=== PATIENT | female | born 1935 | race Caucasian/White ===

== ENCOUNTER 2017-05-01 19:09 | Inpatient (IN) | payer MEDICARE, BC ==
[2017-05-01] MEDS ORDERED: fentaNYL 100 MCG/2 ML SDV IVPUSH ONE (19:49)
--- NOTE | 2017-05-01 20:02 | EDM.PDOC ---
ED HPI GENERAL MEDICAL PROBLEM - General Chief Complaint: Lower Extremity Injury/Pain Stated Complaint: fFALL VIA TRI Time Seen by Provider: 05/01/17 19:35 Source of Information: Reports: Patient, EMS, Family History Limitations: Reports: No Limitations - History of Present Illness INITIAL COMMENTS - FREE TEXT/NARRATIVE: 81-year-old female tripped over a telephone cord falling onto her right side. She sustained a right hip injury, and a skin tear on her right knee and right elbow. She is unable to get up because of hip discomfort. She is holding her right hip in an internally rotated position but it is still very painful. History of COPD and congestive heart failure with pacemaker, but not complaining of chest pain or shortness of breath. She lives at home with her . Onset: Sudden (Within the last few hours) Location: Reports: Upper Extremity, Right, Lower Extremity, Right Quality: Reports: Sharp, Stabbing Severity: Moderate Worsens with: Reports: Movement Associated Symptoms: Reports: No Other Symptoms right leg Pain Score (Numeric/FACES): 4 - Related Data Allergies Allergy/AdvReac Type Severity Reaction Status Date / Time nitrofurantoin Allergy Intermediate Chills Verified 05/01/17 19:16 [From Macrobid] nitrofurantoin Allergy Intermediate Chills Verified 05/01/17 19:16 macrocrystalline [From Macrobid] Home Meds: Home Meds Multivitamin [Multi-Vitamin Daily] 1 tab PO BID 12/06/12 [History] Rosuvastatin [Crestor] 40 mg PO BEDTIME 12/06/12 [History] Acetaminophen [Acetaminophen Extra Strength] 500 mg PO ASDIRECTED PRN 05/01/17 [ History] Polyethylene Glycol 3350 [MiraLAX] 17 gm PO BID PRN 05/01/17 [History] Past Medical History HEENT History: Reports: Impaired Vision, Macular Degeneration, Other (See Below) Other HEENT History: Blind in left eye Cardiovascular History: Reports: MD, Pacemaker 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 History: Reports: Chronic Constipation 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: Musculoskeletal History: Reports: Arthritis, Back Pain, Chronic Neurological History: Reports: CVA Other Neuro History: 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 Dermatologic History: Reports: Other (See Below) Other Dermatologic History: dry skin - Infectious Disease History Infectious Disease History: Reports: Chicken Pox, Measles - Past Surgical History Cardiovascular Surgical History: Reports: Carotid Stents, Coronary Artery Bypass , Other (See Below) Other Cardiovascular Surgeries/Procedures: Patient states, "removed stents when they placed the pacer." GI Surgical History: Reports: Cholecystectomy, Colonoscopy Social & Family History - Tobacco Use Smoking Status *Q: Never Smoker Years of Tobacco use: 40 Used Tobacco, but Quit: Yes Month Tobacco Last Used: December 1989 Second Hand Smoke Exposure: No - Caffeine Use Caffeine Use: Reports: Coffee - Alcohol Use Days Per Week of Alcohol Use: 1 Number of Drinks Per Day: 2 Total Drinks Per Week: 2 - Recreational Drug Use Recreational Drug Use: No Review of Systems - Review of Systems Review Of Systems: See Below Constitutional: Denies: Fever Respiratory: Denies: Shortness of Breath, Cough Cardiovascular: Denies: Chest Pain GI/Abdominal: Denies: Abdominal Pain, Nausea, Vomiting Musculoskeletal: Reports: Other (Right hip pain) Skin: Reports: Other (Skin tears of the right elbow and right knee) Neurological: Reports: Other (No head injury or neck injury). Denies: Headache Psychiatric: Reports: No Symptoms ED EXAM, GENERAL - Physical Exam Exam: See Below Exam Limited By: No Limitations General Appearance: Alert, Mild Distress (Patient is quite uncomfortable) Head: Atraumatic Neck: Supple Respiratory/Chest: No Respiratory Distress Cardiovascular: Regular Rate, Rhythm (Very distant heart sounds but regular, no significant murmur) GI/Abdominal: Non-Tender Extremities: Other (Markedly tender to any palpation of the right proximal femur. Increased pain with any passive movement) Neurological: Alert, Oriented Skin Exam: Warm, Dry, Other (Superficial skin tears of the right knee and right elbow) Course - Vital Signs Last Recorded V/S: Last Vital Signs Temp 98.8 F 05/01/17 22:11 Pulse 100 05/01/17 22:11 Resp 18 05/01/17 22:11 BP 146/77 H 05/01/17 22:11 Pulse Ox 94 L 05/01/17 22:38 - Orders/Labs/Meds Orders: Active Orders 24 hr Category Date Time Status Urinary Catheter Assessment [RC] ASDIRECTED Care 05/01/17 20:18 Active Hip Min 2V or 3V w Pelvis Rt [CR] Stat Exams 05/01/17 19:50 Taken Medication Orders Acetaminophen (Tylenol) 650 mg PO Q4H PRN PRN Reason: Pain (Mild 1-3)/fever Albuterol (Proventil Neb Soln) 2.5 mg NEB Q4H PRN PRN Reason: Shortness Of Breath/wheezing Docusate Sodium (Colace) 100 mg PO BID PRN PRN Reason: Constipation Last Admin: 05/01/17 23:00 Dose: 100 mg Hydromorphone HCl (Dilaudid) 0.5 - 1 mg IVPUSH Q2H PRN PRN Reason: Pain Sodium Chloride (Normal Saline) 1,000 mls @ 100 mls/hr IV ASDIRECTED SUKH Last Admin: 05/01/17 22:40 Dose: 100 mls/hr Lorazepam (Ativan) 0.5 - 1 mg IV Q6H PRN PRN Reason: Agitation Melatonin (Melatonin) 6 mg PO BEDTIME SUKH Oxycodone HCl (Oxycodone) 5 mg PO Q4H PRN PRN Reason: Pain (moderate 4-6) Last Admin: 05/01/17 22:40 Dose: 5 mg Pantoprazole Sodium (Protonix Iv) 40 mg IVPUSH DAILY [facility] Last Admin: 05/01/17 23:00 Dose: 40 mg Labs: Laboratory Tests 05/01/17 05/01/17 Range/Units 20:40 20:40 WBC 9.7 (4.5-11.0) K/uL RBC 4.21 (3.30-5.50) M/uL Hgb 12.9 D (12.0-15.0) g/dL Hct 36.7 (36.0-48.0) % MCV 87 (80-98) fL MCH 31 (27-31) pg MCHC 35 (32-36) % Plt Count 154 (150-400) K/uL Neut % (Auto) 70 H (36-66) % Lymph % (Auto) 11 L (24-44) % [place] % (Auto) 12 H (2-6) % Eos % (Auto) 6 H (2-4) % Baso % (Auto) 0 (0-1) % Sodium 134 L (140-148) mmol/L Potassium 4.1 (3.6-5.2) mmol/L Chloride 102 (100-108) mmol/L Carbon Dioxide 23 (21-32) mmol/L Anion Gap 13.1 (5.0-14.0) mmol/L BUN 10 D (7-18) mg/dL Creatinine 0.7 (0.6-1.0) mg/dL Est Cr Clr Drug Dosing 45.13 mL/min Estimated GFR (MDRD) > 60 (>60) Glucose 99 (74-106) mg/dL Calcium 9.0 (8.5-10.1) mg/dL Meds: Medications Generic Name Dose Route Start Last Admin Trade Name Violeta PRN Reason Stop Dose Admin Acetaminophen 650 mg 05/01/17 22:11 Tylenol PO Q4H PRN Pain (Mild 1-3)/fever Albuterol 2.5 mg 05/01/17 22:11 Proventil Neb Soln NEB Q4H PRN Shortness Of Breath/wheezing Docusate Sodium 100 mg 05/01/17 22:11 05/01/17 23:00 Colace PO 100 mg BID PRN Administration Constipation Hydromorphone HCl 0.5 - 1 mg 05/01/17 22:11 Dilaudid IVPUSH Q2H PRN Pain Sodium Chloride 1,000 mls @ 100 mls/hr 05/01/17 22:11 05/01/17 22:40 Normal Saline IV 100 mls/hr ASDIRECTED SUKH Administration Lorazepam 0.5 - 1 mg 05/01/17 22:11 Ativan IV Q6H PRN Agitation Melatonin 6 mg 05/02/17 21:00 Melatonin PO BEDTIME SUKH Oxycodone HCl 5 mg 05/01/17 22:11 05/01/17 22:40 Oxycodone PO 5 mg Q4H PRN Administration Pain (moderate 4-6) Pantoprazole Sodium 40 mg 05/01/17 22:30 05/01/17 23:00 Protonix Iv IVPUSH 40 mg DAILY SUKH Administration Discontinued Medications Generic Name Dose Route Start Last Admin Trade Name Freq PRN Reason Stop Dose Admin Fentanyl 25 mcg 05/01/17 19:49 05/01/17 19:56 Sublimaze IVPUSH 05/01/17 19:50 25 mcg ONETIME ONE Administration Hydromorphone HCl 0.5 mg 05/01/17 20:32 05/01/17 20:43 Dilaudid IVPUSH 05/01/17 20:33 0.5 mg ONETIME ONE Administration - Re-Assessments/Exams Free Text/Narrative Re-Assessment/Exam: 05/01/17 20:02 25 g of fentanyl IV was given and a right hip x-ray with pelvis was obtained. 05/01/17 20:22 X-ray confirmed an intertrochanteric fracture of the right hip. CBC, BMP were obtained and a Serna was placed. Dr. Bryson Vizcarra of orthopedics reviewed the films, wanted the patient admitted to the hospitalist service with intention of doing surgery tomorrow. Departure - Departure Time of Disposition: 21:37 Disposition: Admitted As Inpatient 66 Condition: Fair Clinical Impression: Intertrochanteric fracture, hip - Discharge Information - My Orders Last 24 Hours: My Active Orders 05/01/17 19:50 Hip Min 2V or 3V w Pelvis Rt [CR] Stat 05/01/17 20:18 Urinary Catheter Assessment [RC] ASDIRECTED - Assessment/Plan Last 24 Hours: My Active Orders 05/01/17 19:50 Hip Min 2V or 3V w Pelvis Rt [CR] Stat 05/01/17 20:18 Urinary Catheter Assessment [RC] ASDIRECTED
[2017-05-01] MEDS ORDERED: HYDROmorphone 0.5 MG/0.5 ML Syringe IVPUSH ONE (20:32)
--- NOTE | 2017-05-01 21:43 | PCM.HP ---
H&P History of Present Illness - General Date of Service: 05/01/17 Admit Problem/Dx: Admission Diagnosis/Problem Admission Diagnosis/Problem Hip fracture requiring operative repair Source of Information: Patient, Family History Limitations: Reports: No Limitations - History of Present Illness Initial Comments - Free Text/Narative: 81-year-old female tripped over a telephone cord falling onto her right side. She sustained a right hip injury, and a skin tear on her right knee and right elbow. She is unable to get up because of hip discomfort. She is holding her right hip in an internally rotated position but it is still very painful. History of COPD and congestive heart failure with pacemaker, but not complaining of chest pain or shortness of breath. She lives at home with her . Onset of Symptoms: Reports: Sudden Symptom Onset Date: 05/01/17 Duration of Symptoms: Reports: Hour(s): Location: Reports: Lower Extremity, Right Quality: Reports: Sharp, Throbbing Severity: Severe Improves with: Reports: Immobilization Worsens with: Reports: Movement Context: Reports: Trauma (fall at home) Associated Symptoms: Reports: Other (right lower leg pain, skin tears to right elbow and right lateral thigh) right leg Pain Score (Numeric/FACES): 4 - Related Data Allergies/Adverse Reactions: Allergies Allergy/AdvReac Type Severity Reaction Status Date / Time nitrofurantoin Allergy Intermediate Chills Verified 05/01/17 19:16 [From Macrobid] nitrofurantoin Allergy Intermediate Chills Verified 05/01/17 19:16 macrocrystalline [From Macrobid] Home Medications: Home Meds Multivitamin [Multi-Vitamin Daily] 1 tab PO BID 12/06/12 [History] Rosuvastatin [Crestor] 40 mg PO BEDTIME 12/06/12 [History] Acetaminophen [Acetaminophen Extra Strength] 500 mg PO ASDIRECTED PRN 05/01/17 [ History] Polyethylene Glycol 3350 [MiraLAX] 17 gm PO BID PRN 05/01/17 [History] Past Medical History HEENT History: Reports: Impaired Vision, Macular Degeneration, Other (See Below) Other HEENT History: Blind in left eye Cardiovascular History: Reports: [place], Pacemaker 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 History: 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: Chronic 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: Musculoskeletal History: Reports: Arthritis, Back Pain, Chronic Neurological History: Reports: CVA Other Neuro History: 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 Dermatologic History: Reports: Other (See Below) Other Dermatologic History: dry skin - Infectious Disease History Infectious Disease History: Reports: Chicken Pox, Measles - Past Surgical History Cardiovascular Surgical History: Reports: Carotid Stents, Coronary Artery Bypass , Other (See Below) Other Cardiovascular Surgeries/Procedures: Patient states, "removed stents when they placed the pacer." GI Surgical History: Reports: Cholecystectomy, Colonoscopy Social & Family History - Tobacco Use Smoking Status *Q: Never Smoker Years of Tobacco use: 40 Used Tobacco, but Quit: Yes Month Tobacco Last Used: December 1989 Second Hand Smoke Exposure: No - Caffeine Use Caffeine Use: Reports: Coffee - Alcohol Use Days Per Week of Alcohol Use: 1 Number of Drinks Per Day: 2 Total Drinks Per Week: 2 - Recreational Drug Use Recreational Drug Use: No - Living Situation & Occupation Living situation: Reports: Occupation: Retired (lives with in apartment in [facility] [place] [facility] H&P Review of Systems - Review of Systems: Review Of Systems: See Below General: Reports: Other (right lower leg pain and right arm pain) HEENT: Reports: Glasses, Other (dentures) Pulmonary: Reports: No Symptoms Cardiovascular: Reports: No Symptoms 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: Reports: No Symptoms Genitourinary: Reports: No Symptoms Musculoskeletal: Reports: Leg Pain (right) Skin: Reports: Wound (skin tears to right elbow and lateral thigh) Psychiatric: Reports: Other (family member report intermittent "forgetfulness") Neurological: Reports: Other (right leg pain) Hematologic/Lymphatic: Reports: No Symptoms Immunologic: Reports: No Symptoms Exam - Exam Exam: See Below - Vital Signs Vital Signs: Last Vital Signs Temp 35.7 C 05/01/17 19:38 Pulse 94 05/01/17 21:21 Resp 22 H 05/01/17 19:38 BP 149/95 H 05/01/17 21:21 Pulse Ox 91 L 05/01/17 21:21 Weight: 45.359 kg - Exam Quality Assessment: Urinary Catheter, Other (skin tear to right elbow and right thigh) General: Alert, Oriented, Cooperative, Severe Distress HEENT: PERRLA, Conjunctiva Clear, EACs Clear, EOMI, Nares Patent, Glasses, Other (denture) Neck: Supple Lungs: Clear to Auscultation, Normal Respiratory Effort Cardiovascular: Regular Rate, Regular Rhythm, Normal S1, Normal S2 GI/Abdominal Exam: Normal Bowel Sounds, Soft, Tender (pain and tenderness noted to low pelvis ad right hip area.) (Female) Exam: Normal External Exam Rectal (Female) Exam: Normal Exam Back Exam: Decreased Range of Motion, Muscle Spasm (low back) Extremities: Pedal Edema (1+ ), Leg Pain (right upper thigh with bulge, acute pain with any movement), Limited Range of Motion Peripheral Pulses: 2+: Dorsalis Pedis (L), Dorsalis Pedis (R) Skin: Warm, Dry, Wound (skin tear to right elbow and right lateral thigh) Neurological: Normal Speech Neuro Extensive - Mental Status: Alert, Oriented x3, Normal Mood/Affect, Normal Cognition, Memory Intact Neuro Extensive - Motor, Sensory, Reflexes: Motor/Sensory Deficits Psychiatric: Alert, Normal Affect, Normal Mood - Patient Data Lab Results Last 24 hrs: Laboratory Results - last 24 hr 05/01/17 05/01/17 Range/Units 20:40 20:40 WBC 9.7 (4.5-11.0) K/uL RBC 4.21 (3.30-5.50) M/uL Hgb 12.9 D (12.0-15.0) g/dL Hct 36.7 (36.0-48.0) % MCV 87 (80-98) fL MCH 31 (27-31) pg MCHC 35 (32-36) % Plt Count 154 (150-400) K/uL Neut % (Auto) 70 H (36-66) % Lymph % (Auto) 11 L (24-44) % [place] % (Auto) 12 H (2-6) % Eos % (Auto) 6 H (2-4) % Baso % (Auto) 0 (0-1) % Sodium 134 L (140-148) mmol/L Potassium 4.1 (3.6-5.2) mmol/L Chloride 102 (100-108) mmol/L Carbon Dioxide 23 (21-32) mmol/L Anion Gap 13.1 (5.0-14.0) mmol/L BUN 10 D (7-18) mg/dL Creatinine 0.7 (0.6-1.0) mg/dL Est Cr Clr Drug Dosing 45.13 mL/min Estimated GFR (MDRD) > 60 (>60) Glucose 99 (74-106) mg/dL Calcium 9.0 (8.5-10.1) mg/dL Result Diagrams: 05/01/17 20:40 05/01/17 20:40 *Q Meaningful Use (ADM) - VTE *Q VTE Criteria *Q: - Stroke *Q Stroke Criteria *Q: - AMI *Q AMI Criteria *Q: - Problem List (1) Intertrochanteric fracture, hip SNOMED Code(s): 508624823 ICD Code: S72.143A - DISPLACED INTERTROCHANTERIC FRACTURE OF UNSP FEMUR, INIT Status: Acute Priority: High Current Visit: Yes (2) COPD (chronic obstructive pulmonary disease) SNOMED Code(s): 88999994 ICD Code: J44.9 - CHRONIC OBSTRUCTIVE PULMONARY DISEASE, UNSPECIFIED Status : Chronic Priority: Low Current Visit: No Qualifiers: Emphysema type: unspecified (3) Cardiac pacemaker in situ SNOMED Code(s): 786932045 ICD Code: Z95.0 - PRESENCE OF CARDIAC PACEMAKER Status: Chronic Priority : Medium Current Visit: No (4) Congestive heart failure (CHF) SNOMED Code(s): 66911365 ICD Code: I50.9 - HEART FAILURE, UNSPECIFIED Status: Chronic Priority: Medium Current Visit: No Qualifiers: Congestive heart failure type: unspecified Congestive heart failure chronicity: unspecified Qualified Code(s): I50.9 - Heart failure, unspecified Problem List Initiated/Reviewed/Updated: Yes Orders Last 24hrs: Active Orders 24 hr Category Date Time Status Patient Status Manage Transfer [TRANSFER] Routine ADT 05/01/17 21:06 Active Insert Serna Catheter [Insert Urinary Catheter] [OM.PC] Care 05/01/17 20:30 Ordered Q24H Urinary Catheter Assessment [RC] ASDIRECTED Care 05/01/17 20:18 Active Hip Min 2V or 3V w Pelvis Rt [CR] Stat Exams 05/01/17 19:50 Taken Resuscitation Status Routine Resus Stat 05/01/17 21:09 Ordered Assessment/Plan Comment:: Assessment/Plan Comment:: Assessment and plan - 81-year-old female tripped over a telephone cord falling onto her right side. She sustained a right hip injury, and a skin tear on her right knee and right elbow. She is unable to get up because of hip discomfort. She is holding her right hip in an internally rotated position but it is still very painful. History of COPD and congestive heart failure with pacemaker, but not complaining of chest pain or shortness of breath. She lives at home with her . Xray shows a Intertrochanteric fracture of the right hip consulted with Dr. Quang Vizcarra, will admit to Inpatient Unit with surgery in am. Family in attendance, agree with plan of care. Right Intertrochanteric fracture of right hip. -Admit for right intertrochanteric fracture of the right hip -consult Dr. Quang Vizcarra, Orthopedic Surgery -Surgical consultation for surgical intervention tomorrow -IV hydration; Normal Saline at 100ml/hr -Am labs CBC and BMP Pain control: -IV Dilaudid 0.5mg to 1 mg every 2 hours -IV Ativan 0.5 to 1 mg every 6 hours -Melatonin 6 mg at bedtime Coronary artery disease - Pacemaker, PVD, HTN, CHF, CABG 2007, -Blood pressure control and close monitoring of vital signs -telemetry hx COPD -pulse ox -albuterol nebs prn Maintenance issues - - DVT prophylaxis - mechanical, SCD - GI prophylaxis - PPI - Nutrition - regular diet this evening, nothing by mouth after midnight - Serna catheter - placed in ER CODE STATUS - FULL CODE Admission justification - This patient will be admitted for inpatient services and is medically appropriate meeting medical necessity for inpatient admission as outlined in my documentation. I reasonably expect the patient will require inpatient services that span a period time over 2 midnights. I reasonably expect this patient to be discharged or transferred within 96 hours [facility]. Disposition - anticipate discharge back to home or short term rehab after the hospital stay Primary care physician - Dr. Vargas Hospitialist: Carlitos Davis M.D. Orthopedic Surgery Service: Quang Vizcarra M.D.
[2017-05-01] MEDS ORDERED: Docusate Sodium 100 MG Cap PO PRN (22:11)
[2017-05-01] MEDS ORDERED: Albuterol 0.083% 2.5 MG/3 ML Neb Soln NEB PRN (22:11)
[2017-05-01] MEDS ORDERED: Acetaminophen 325 MG Tab PO PRN (22:11)
[2017-05-01] MEDS ORDERED: Pantoprazole 40 MG Vial IVPUSH SCH (22:30)
[2017-05-01] MEDS: oxyCODONE 5 MG Tab PO PRN (22:40)
[2017-05-01] MEDS: Sodium Chloride 0.9% 1,000 ML IV SCH (22:40)
[2017-05-02] MEDS: HYDROmorphone 0.5 MG/0.5 ML Syringe IVPUSH PRN ×6 (02:03→21:52)
[2017-05-02] MEDS: LORazepam 2 MG/ML SDV IV PRN (05:21)
[2017-05-02] MEDS ORDERED: Midazolam 1 MG/ML 2 ML SDV ONE (07:43)
[2017-05-02] MEDS ORDERED: fentaNYL 100 MCG/2 ML SDV ONE (07:43)
[2017-05-02] MEDS ORDERED: Propofol 200 MG/20 ML SDV ONE (07:43)
[2017-05-02] MEDS ORDERED: Bupivacaine 0.5%/EPINEPHrine 1:200,000 50 ML MDV ONE (07:48)
[2017-05-02] MEDS ORDERED: Povidone-Iodine 10% Soln 118.25 ML Bottle ONE (07:48)
[2017-05-02] MEDS: Sodium Chloride 0.9% 1,000 ML IV SCH ×3 (09:07→23:55)
[2017-05-02] MEDS: oxyCODONE 5 MG Tab PO PRN (09:18)
--- NOTE | 2017-05-02 09:37 | CR ---
Hip Min 2V or 3V w Pelvis Rt HISTORY: Fall. COMPARISON: 11/12/2015 FINDINGS: Moderately displaced intertrochanteric type fracture right hip. No dislocation. Pronounced bony demineralization. Pubic rami on the pelvis film not well seen due to rotation, bone demineraliza tion and overlying bowel gas. Impression: 1. Intertrochanteric fracture right hip. 2. Limited views of the pelvis as above.
[2017-05-02] MEDS ORDERED: Acetaminophen 500 MG Tab PO ONE (10:30)
[2017-05-02] MEDS ORDERED: Scopolamine 1.5 MG Transdermal Patch TOP SCH (10:45)
[2017-05-02] MEDS: Albuterol/Ipratropium 3.0-0.5 MG/3 ML Neb Soln NEB SCH ×3 (10:58→21:14)
[2017-05-02] MEDS ORDERED: Ropivacaine 49.25 ML, Ketorolac 30 MG, EPINEPHrine 0.5 MG, cloNIDine 80 MCG, Sodium Chl... INJECT ONE ×5 (11:00)
[2017-05-02] MEDS ORDERED: Ketamine 500 MG/5 ML MDV IV SCH (11:00)
--- NOTE | 2017-05-02 11:09 | PCM.CONS ---
H&P History of Present Illness - General Admit Problem/Dx: Admission Diagnosis/Problem Admission Diagnosis/Problem Hip fracture requiring operative repair Source of Information: Patient, Provider, RN History Limitations: Reports: Altered Mental Status - History of Present Illness Onset of Symptoms: Reports: Sudden Duration of Symptoms: Reports: Hour(s): Location: Reports: Lower Extremity, Right Quality: Reports: Ache, Burning, Dull, Stabbing, Throbbing Improves with: Reports: Immobilization Worsens with: Reports: None Associated Symptoms: Reports: No Other Symptoms right leg Pain Score (Numeric/FACES): 4 - Related Data Allergies/Adverse Reactions: Allergies Allergy/AdvReac Type Severity Reaction Status Date / Time nitrofurantoin Allergy Intermediate Chills Verified 05/01/17 19:16 [From Macrobid] nitrofurantoin Allergy Intermediate Chills Verified 05/01/17 19:16 macrocrystalline [From Macrobid] Home Medications: Home Meds Multivitamin [Multi-Vitamin Daily] 1 tab PO BID 12/06/12 [History] Rosuvastatin [Crestor] 40 mg PO BEDTIME 12/06/12 [History] Acetaminophen [Acetaminophen Extra Strength] 500 mg PO ASDIRECTED PRN 05/01/17 [ History] Polyethylene Glycol 3350 [MiraLAX] 17 gm PO BID PRN 05/01/17 [History] Past Medical History HEENT History: Reports: Impaired Vision, Macular Degeneration, Other (See Below) Other HEENT History: Blind in left eye Cardiovascular History: Reports: [place], Pacemaker 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 History: Reports: Chronic Constipation 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: Musculoskeletal History: Reports: Arthritis, Back Pain, Chronic Neurological History: Reports: CVA Other Neuro History: 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 Dermatologic History: Reports: Other (See Below) Other Dermatologic History: dry skin - Infectious Disease History Infectious Disease History: Reports: Chicken Pox, Measles - Past Surgical History Cardiovascular Surgical History: Reports: Carotid Stents, Coronary Artery Bypass , Other (See Below) Other Cardiovascular Surgeries/Procedures: Patient states, "removed stents when they placed the pacer." GI Surgical History: Reports: Cholecystectomy, Colonoscopy Social & Family History - Family History Family Medical History: Noncontributory - Tobacco Use Smoking Status *Q: Never Smoker Years of Tobacco use: 40 Used Tobacco, but Quit: Yes Month Tobacco Last Used: December 1989 Second Hand Smoke Exposure: No - Caffeine Use Caffeine Use: Reports: Coffee - Alcohol Use Days Per Week of Alcohol Use: 1 Number of Drinks Per Day: 2 Total Drinks Per Week: 2 Date of Last Drink: 04/30/17 Time of Last Drink: 16:00 - Recreational Drug Use Recreational Drug Use: No - Living Situation & Occupation Living situation: Reports: Occupation: Retired (lives with in apartment in [facility] H&P Review of Systems - Review of Systems: Review Of Systems: See Below General: Reports: No Symptoms HEENT: Reports: No Symptoms Pulmonary: Reports: No Symptoms Cardiovascular: Reports: No Symptoms 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: Reports: No Symptoms Genitourinary: Reports: No Symptoms Musculoskeletal: Reports: Joint Pain, Muscle Pain, Muscle Stiffness Skin: Reports: No Symptoms Psychiatric: Reports: No Symptoms Neurological: Reports: No Symptoms Hematologic/Lymphatic: Reports: No Symptoms Immunologic: Reports: No Symptoms Exam - Exam Exam: See Below - Vital Signs Vital Signs: Last Vital Signs Temp 99.7 F 05/02/17 07:53 Pulse 83 05/02/17 07:53 Resp 18 05/02/17 07:53 BP 111/50 L 05/02/17 07:53 Pulse Ox 93 L 05/02/17 07:53 Weight: 100 lb - Exam General: Alert, Oriented, 4 HEENT: PERRLA, Conjunctiva Clear, Hearing Intact, Mucosa Moist & [place] Neck: Supple, Trachea Midline, 2 Lungs: Normal Respiratory Effort Extremities: Normal Capillary Refill Peripheral Pulses: 2+: Dorsalis Pedis (L), Dorsalis Pedis (R) Skin: Warm, Dry, Intact Neurological: Cranial Nerves Intact Neuro Extensive - Mental Status: Alert, Oriented x3, Normal Mood/Affect, Slow Response to Commands Neuro Extensive - Motor, Sensory, Reflexes: CN II-XII Intact Psychiatric: Alert, Normal Affect, Normal Mood - Patient Data Lab Results Last 24 hrs: Laboratory Results - last 24 hr 05/02/17 05/02/17 Range/Units 05:45 05:45 WBC 9.3 (4.5-11.0) K/uL RBC 3.15 L (3.30-5.50) M/uL Hgb 9.5 L D (12.0-15.0) g/dL Hct 27.6 L (36.0-48.0) % MCV 88 (80-98) fL MCH 30 (27-31) pg MCHC 34 (32-36) % Plt Count 156 (150-400) K/uL Neut % (Auto) 81 H (36-66) % Lymph % (Auto) 6 L (24-44) % [place] % (Auto) 13 H (2-6) % Eos % (Auto) 0 L (2-4) % Baso % (Auto) 0 (0-1) % Sodium 135 L (140-148) mmol/L Potassium 4.0 (3.6-5.2) mmol/L Chloride 103 (100-108) mmol/L Carbon Dioxide 24 (21-32) mmol/L Anion Gap 12.0 (5.0-14.0) mmol/L BUN 13 (7-18) mg/dL Creatinine 0.9 (0.6-1.0) mg/dL Est Cr Clr Drug Dosing 35.10 mL/min Estimated GFR (MDRD) > 60 (>60) Glucose 128 H (74-106) mg/dL Calcium 8.2 L (8.5-10.1) mg/dL Result Diagrams: 05/02/17 05:45 05/02/17 05:45 Consult PN Assessment/Plan POD#: 0 Procedures: Procedures AIRWAY INHALATION TREATMENT (08/27/14) ASSAY OF CREATININE (11/12/15) ASSAY OF LACTIC ACID (07/27/14) ASSAY OF LIPASE (07/27/14) ASSAY OF MAGNESIUM (08/27/14) ASSAY OF NATRIURETIC PEPTIDE (07/28/14) ASSAY OF PHOSPHORUS (08/27/14) BLOOD TRANSFUSION SERVICE (07/28/14) BLOOD TYPING SEROLOGIC ABO (07/28/14) BLOOD TYPING SEROLOGIC RH(D) (07/28/14) C-REACTIVE PROTEIN (08/27/14) CHEST X-RAY 2VW FRONTAL&LATL (07/28/14) COMPATIBILITY TEST ANTIGLOB (07/28/14) COMPATIBILITY TEST SPIN (07/28/14) COMPLETE CBC AUTOMATED (08/27/14) COMPLETE CBC W/AUTO DIFF WBC (07/28/14) COMPREHEN METABOLIC PANEL (08/27/14) CT ABD & PELV W/CONTRAST (11/12/15) CT ABDOMEN W/DYE (03/24/13) CT CHEST SPINE W/O DYE (07/28/14) CT LUMBAR SPINE W/O DYE (07/28/14) CT THORAX W/DYE (03/24/13) ECHO EXAM OF ABDOMEN (07/28/14) ELECTROCARDIOGRAM TRACING (07/28/14) EMERGENCY DEPT VISIT (08/10/14) EMERGENCY DEPT VISIT (08/10/14) EMERGENCY DEPT VISIT (07/28/14) EMERGENCY DEPT VISIT (07/28/14) EMERGENCY DEPT VISIT (07/27/14) EMERGENCY DEPT VISIT (07/27/14) EMERGENCY DEPT VISIT (12/06/12) EMERGENCY DEPT VISIT (12/06/12) EVALUATE PT USE OF INHALER (07/28/14) HEMOGLOBIN (07/28/14) HYDRATE IV INFUSION ADD-ON (07/27/14) INSERT PULSE GEN DUAL LEADS (06/21/15) INSERT TEMP BLADDER CATH (07/27/14) MEASURE BLOOD OXYGEN LEVEL (07/28/14) METABOLIC PANEL TOTAL CA (08/27/14) PT EVALUATION (07/28/14) RBC ANTIBODY SCREEN (07/28/14) RBC SED RATE NONAUTOMATED (07/27/14) ROUTINE VENIPUNCTURE (11/12/15) THER/PROPH/DIAG INJ IV PUSH (07/28/14) TISSUE EXAM BY PATHOLOGIST (07/28/14) TX/PRO/DX INJ NEW DRUG ADDON (07/27/14) TX/PRO/DX INJ SAME DRUG MACHINE SHOP WORKER (07/28/14) URINALYSIS AUTO W/SCOPE (07/27/14) X-RAY EXAM L-2 SPINE 4/>VWS (07/27/14) X-RAY EXAM OF ABDOMEN (08/27/14) (1) Intertrochanteric fracture, hip SNOMED Code(s): 931890580 Code(s): S72.143A - DISPLACED INTERTROCHANTERIC FRACTURE OF UNSP FEMUR, INIT Current Visit: Yes Problem List Initiated/Reviewed/Updated: Yes My Orders Last 24 Hours: My Active Orders 05/02/17 10:17 Fluoro Over 1Hr wo Rad [CR] Routine 05/02/17 10:30 TYPE AND SCREEN [BBK] Routine 05/02/17 10:31 RT Incentive Spirometry [RC] ASDIRECTED 05/02/17 10:45 Scopolamine [Transderm-Scop] 1.5 mg TOP Q72H 05/02/17 11:00 Ketamine [Ketalar] 23 mg IV ASDIRECTED 05/02/17 11:30 Tranexamic Acid [Cyklokapron] 450 mg Sodium Chloride 0.9% [Normal Saline] 50 ml IV Q3H ceFAZolin [Ancef] 2 gm Premix Bag 1 bag IV ONCALL 05/03/17 16:00 Non-Formulary Medication [NF Drug] 1 each TOP DAILY Requesting Provider: leno dominguez Date Consult Requested: 05/02/17 Patient History Reviewed: Yes Admission H&P Reviewed: Yes Notified Requestor: Yes
[2017-05-02] MEDS ORDERED: Tranexamic Acid 1,000 MG in Sodium Chloride 0.9% 50 ML IV SCH (11:30)
[2017-05-02] MEDS ORDERED: SODIUM CHLORIDE 0.9% IV SCH ×2 (11:30→14:00)
[2017-05-02] MEDS ORDERED: TRANEXAMIC ACID IV SCH ×2 (11:30→14:00)
[2017-05-02] MEDS ORDERED: ceFAZolin 2 GM in Premix Bag 1 BAG IV ONE (11:30)
[2017-05-02] MEDS ORDERED: Pantoprazole 40 MG Vial IVPUSH SCH (11:30)
--- NOTE | 2017-05-02 12:03 | PCM.PN ---
- General Info Date of Service: 05/02/17 Functional Status: Denies: Pain Controlled - Review of Systems Pulmonary: Denies: Shortness of Breath Musculoskeletal: Reports: Leg Pain (right hip) Systems Review Comment:: no acute events overnight but he has not been well-controlled. Patient has been having difficulty finding a comfortable position. She is able to wiggle her toes but is unable to move her hip because of severe pain. She is on supplemental oxygen but does not feel short of breath. She does feel anxious about the upcoming procedure. - Patient Data Vitals - Most Recent: Last Vital Signs Temp 37.6 C 05/02/17 07:53 Pulse 83 05/02/17 07:53 Resp 18 05/02/17 07:53 BP 111/50 L 05/02/17 07:53 Pulse Ox 93 L 05/02/17 07:53 Weight - Most Recent: 45.359 kg I&O - Last 24 Hours: Intake & Output 05/01/17 05/02/17 05/02/17 22:59 06:59 14:59 Intake Total 50 Output Total 340 Balance -340 50 Lab Results Last 24 Hours: Laboratory Results - last 24 hr 05/02/17 05/02/17 05/02/17 Range/Units 05:45 05:45 10:30 WBC 9.3 (4.5-11.0) K/uL RBC 3.15 L (3.30-5.50) M/uL Hgb 9.5 L D (12.0-15.0) g/dL Hct 27.6 L (36.0-48.0) % MCV 88 (80-98) fL MCH 30 (27-31) pg MCHC 34 (32-36) % Plt Count 156 (150-400) K/uL Neut % (Auto) 81 H (36-66) % Lymph % (Auto) 6 L (24-44) % [place] % (Auto) 13 H (2-6) % Eos % (Auto) 0 L (2-4) % Baso % (Auto) 0 (0-1) % Sodium 135 L (140-148) mmol/L Potassium 4.0 (3.6-5.2) mmol/L Chloride 103 (100-108) mmol/L Carbon Dioxide 24 (21-32) mmol/L Anion Gap 12.0 (5.0-14.0) mmol/L BUN 13 (7-18) mg/dL Creatinine 0.9 (0.6-1.0) mg/dL Est Cr Clr Drug Dosing 35.10 mL/min Estimated GFR (MDRD) > 60 (>60) Glucose 128 H (74-106) mg/dL Calcium 8.2 L (8.5-10.1) mg/dL Blood Type A NEGATIVE Gel Antibody Screen Negative Med Orders - Current: Current Medications Acetaminophen (Tylenol) 650 mg PO Q4H PRN PRN Reason: Pain (Mild 1-3)/fever Albuterol (Proventil Neb Soln) 2.5 mg NEB Q4H PRN PRN Reason: Shortness Of Breath/wheezing Albuterol/Ipratropium (Duoneb 3.0-0.5 Mg/3 Ml) 3 ml NEB QIDRT [facility] Last Admin: 05/02/17 10:58 Dose: 3 ml Docusate Sodium (Colace) 100 mg PO BID PRN PRN Reason: Constipation Last Admin: 05/01/17 23:00 Dose: 100 mg Hydromorphone HCl (Dilaudid) 0.5 - 1 mg IVPUSH Q2H PRN PRN Reason: Pain Last Admin: 05/02/17 10:34 Dose: 1 mg Sodium Chloride (Normal Saline) 1,000 mls @ 100 mls/hr IV ASDIRECTED [facility] Last Admin: 05/02/17 09:07 Dose: 100 mls/hr Cefazolin Sodium/Dextrose 2 gm (/ Premix) 50 mls @ 100 mls/hr IV ONCALL ONE Stop: 05/02/17 11:59 Last Admin: 05/02/17 10:50 Dose: 100 mls/hr Tranexamic Acid 450 mg/ Sodium (Chloride) 54.5 mls @ 218 mls/hr IV Q3H [facility] Stop: 05/02/17 14:44 Ketamine HCl (Ketalar) 23 mg IV ASDIRECTED [facility] Stop: 05/02/17 14:00 Lorazepam (Ativan) 0.5 - 1 mg IV Q6H PRN PRN Reason: Agitation Last Admin: 05/02/17 05:21 Dose: 1 mg Melatonin (Melatonin) 6 mg PO BEDTIME [facility] Scopolamine Patch (Check) 1 each TOP DAILY [facility] Oxycodone HCl (Oxycodone) 5 mg PO Q4H PRN PRN Reason: Pain (moderate 4-6) Last Admin: 05/02/17 09:18 Dose: 5 mg Pantoprazole Sodium (Protonix) 40 mg PO ACBREAKFAST [facility] Scopolamine (Transderm-Scop) 1.5 mg TOP Q72H [facility] Stop: 05/05/17 10:00 Last Admin: 05/02/17 10:49 Dose: 1.5 mg Discontinued Medications Bupivacaine HCl/Epinephrine Bitart (Marcaine 0.5%/Epinephrine 1:200,000) Confirm Administered Dose 50 ml .ROUTE .STK-MED ONE Stop: 05/02/17 07:49 Ropivacaine 49.25 ml/Ketorolac Tromethamine 30 mg/Epinephrine HCl 0.5 mg/ Clonidine HCl 80 mcg/ Sodium Chloride 48.45 ml 0 ml INJECT ONETIME ONE Stop: 05/02/17 11:01 Fentanyl (Sublimaze) 25 mcg IVPUSH ONETIME ONE Stop: 05/01/17 19:50 Last Admin: 05/01/17 19:56 Dose: 25 mcg Fentanyl (Sublimaze) Confirm Administered Dose 100 mcg .ROUTE .STK-MED ONE Stop: 05/02/17 07:44 Hydromorphone HCl (Dilaudid) 0.5 mg IVPUSH ONETIME ONE Stop: 05/01/17 20:33 Last Admin: 05/01/17 20:43 Dose: 0.5 mg Midazolam HCl (Versed 1 Mg/Ml) Confirm Administered Dose 2 mg .ROUTE .STK-MED ONE Stop: 05/02/17 07:44 Pantoprazole Sodium (Protonix Iv) 40 mg IVPUSH DAILY [facility] Last Admin: 05/01/17 23:00 Dose: 40 mg Pantoprazole Sodium (Protonix Iv) 40 mg IVPUSH DAILY@1130 [facility] Povidone Iodine (Betadine 10% Soln) Confirm Administered Dose 1 ml .ROUTE .STK- MED ONE Stop: 05/02/17 07:49 Propofol (Diprivan 20 Ml) Confirm Administered Dose 200 mg .ROUTE .STK-MED ONE Stop: 05/02/17 07:44 - Exam Quality Assessment: Supplemental Oxygen General: Alert, Oriented, Cooperative, Mild Distress Lungs: Clear to Auscultation, Normal Respiratory Effort Cardiovascular: Regular Rate, Regular Rhythm GI/Abdominal Exam: Normal Bowel Sounds, Soft, No Distention Extremities: No Pedal Edema, Other (right leg shortened and internally rotated) Skin: Warm, Dry Psy/Mental Status: Alert, Anxious - Problem List Review Problem List Initiated/Reviewed/Updated: Yes - My Orders Last 24 Hours: My Active Orders 05/02/17 10:26 RT Aerosol Therapy [RC] ASDIRECTED 05/02/17 11:00 Albuterol/Ipratropium [DuoNeb 3.0-0.5 MG/3 ML] 3 ml NEB QIDRT 05/03/17 05:00 BASIC METABOLIC PANEL,BMP [CHEM] Timed CBC W/O DIFF,HEMOGRAM [HEME] Timed (1) 05/03/17 07:30 Pantoprazole [ProTONIX] 40 mg PO ACBREAKFAST - Plan Plan:: Assessment and Plan - Right Intertrochanteric fracture of right hip - surgical intervention planned today. Patient is probably in his good a shape as we can get her in for surgery. With her COPD this probably is the largest perioperative risk. patient does not have a great functional status at baseline and would likely benefit from subacute rehabilitation after her surgery and hospital discharge. -reevaluate patient after surgery -Scheduled nebulizers -Surgical consultation for surgical intervention -IV hydration; Normal Saline at 100ml/hr -pain control Coronary artery disease - Pacemaker, PVD, HTN, CHF, CABG 2007. these seem to be stable at this time. -continue medical management -telemetry COPD - not oxygen dependent but has been on oxygen while she's been in the hospital. This will need close monitoring postoperatively. -pulse ox -albuterol nebs prn Maintenance issues - - DVT prophylaxis - mechanical, SCD - GI prophylaxis - PPI - Nutrition - nothing by mouth until after surgery - Serna catheter - placed in ER, will remain in place for strict intake and output monitoring postoperatively Disposition - anticipate discharge to the [facility] after the hospital stay Carlitos Davis M.D.
[2017-05-02] MEDS ORDERED: Neostigmine Methylsulfate 1 MG/ML 5 ML Syringe ONE (12:40)
[2017-05-02] MEDS ORDERED: Dexamethasone 4 MG/ML SDV ONE (12:41)
[2017-05-02] MEDS ORDERED: Ondansetron 4 MG/2 ML SDV ONE (12:41)
[2017-05-02] MEDS ORDERED: Naloxone 0.4 MG/ML SDV ONE (12:57)
[2017-05-02] MEDS ORDERED: Flumazenil 0.1 MG/ML 5 ML MDV ONE (12:57)
--- NOTE | 2017-05-02 14:24 | PCM.SN ---
- Free Text/Narrative Note: I evaluated the patient in PAR at the request of nursing. there was concern that she was not waking up from anesthesia as expected. She has been nonverbal while in the recovery area. There was some concern that she was favoring the left side of her mouth for respiration rather than the entire mouth. Heart rates been in the 80s. Oxygen saturations have been in the mid 90s on 3 L of supplemental oxygen. Blood pressures have been a little bit erratic. Pupils are pinpoint. She's been in the recovery room for 45 minutes without much change. Objectively she does not have a facial droop. Her pupils are equal. She does look in the direction of the person speaking to her but is unable to follow commands at this time. I suspect that this is all medication effect with anesthesia and should clear over time. We will move her to the intensive care unit for close monitoring overnight to be on the safe side. Carlitos Davis MD
[2017-05-02] MEDS ORDERED: Zolpidem 5 MG Tab PO PRN (14:33)
[2017-05-02] MEDS ORDERED: Diazepam 5 MG Tab PO PRN (14:33)
[2017-05-02] MEDS ORDERED: diphenhydrAMINE 50 MG/ML SDV IVPUSH PRN (14:33)
[2017-05-02] MEDS ORDERED: traMADol 50 MG Tab PO PRN (14:33)
[2017-05-02] MEDS ORDERED: Aluminum Hydroxide/Magnesium Hydroxide/Simethicone Susp 30 ML Cup PO PRN (14:33)
[2017-05-02] MEDS ORDERED: Acetaminophen 1,000 MG in Premix Bag 1 BAG IV ONE (16:00)
--- NOTE | 2017-05-02 19:29 | OR ---
DATE OF PROCEDURE: 05/02/2017 PREOPERATIVE DIAGNOSIS: Right hip intertrochanteric fracture closed. POSTOPERATIVE DIAGNOSIS: Right hip intertrochanteric fracture closed. PROCEDURE: Right hip cephalomedullary nailing. OIL PRODUCER: HUDSON Sanchez. Physician clinical laboratory assistant, Coretta Stephens NP, played an essential role in assisting in this case, helping to position the patient, retract structures as needed, as well as suturing and cutting sutures as indicated. Her presence improved patient's safety and decreased operative time. ANESTHESIA: General endotracheal intubation. FLUIDS: Lactated Ringer solution. ESTIMATED BLOOD LOSS: 100 mL. COMPLICATIONS: None. SPECIMENS: None. DISCHARGE DISPOSITION: Stable to PACU. INDICATION FOR THE PROCEDURE: The patient was fell last evening. She was brought to the emergency department where she was found to have a right intertrochanteric fracture which was closed. She was admitted to the hospitalist service. We were then consulted. I spoke with the patient early this morning. Risks and benefits of the procedure were explained to the patient. Informed consent was obtained. Preoperative imaging confirmed the above- mentioned diagnosis. DESCRIPTION OF PROCEDURE: The patient was seen preoperatively in her hospital room. The operative site was marked. She was brought to the operative suite by Anesthesia staff where general anesthesia was administered. She was then placed onto a traction table with all extremities well-padded. Both feet were placed into traction stirrups. The left lower extremity was angled down. The right upper extremity was just slightly up. The right lower extremity was also internally rotated. Prior to surgery, I did apply traction and reduced the fracture as best possible using AP fluoro. We did confirm that we had good visualization on the lateral fluoro. We then removed the fluoroscopy unit and then prepped and draped in a sterile manner. Time-out was called identifying the correct patient, the correct procedure, the correct site, and then antibiotics had begun within appropriate period of time. AP fluoro was used to identify an area just proximal to the greater trochanter and then an incision was made proximal to the greater trochanter for the nail insertion. I then used the awl to go through the greater trochanter. I had to use lateral fluoro as well because of the angulation of the fracture and then the awl went down to the level of the lesser trochanter. We then inserted our guidewire and confirmed that it was down to the level of the knee and measured 360 mm. We then did an opening reamer and then sequentially reamed at 10, 11 and 12 mm with minimal chatter. I then inserted a 12 mm cephalomedullary nail by 360 mm and confirmed good position on my AP fluoro view. I then used a 10 blade to make an incision for my screw for the femoral head and then using the guide, we placed the guidewire into the femoral head. I had to adjust this once because of the way that fracture was sagging went to posteriorly. I was then able to place my guidewire with the tip apex distance on AP and lateral, less than 25 mm. Of course, this was approximation due to the fluoroscopy unit. I then used a lateral cortical entry reamer and then I measured to 105 mm, so I reamed to 100 mm. I then placed a 10 x 100 mm screw and then compressed it slightly and then statically locked my nail proximally. I then removed our outrigger and took final AP and lateral films of the proximal femur. We then concentrated on our distal screws. I used the perfect [place] technique to go through the oblong and then proximal hole, placing 5 mm x 44 mm screws. I then took my final films on AP and lateral fluoroscopy. We then copiously irrigated with saline and then closed with 2-0 Vicryl as well as #2 Stratafix Prineo. We then applied a sterile dressing. We then transferred the patient to the hospital bed and then allowed to awaken from general anesthesia and then took her to the PACU in stable condition. Quang Vizcarra DO /[id number]
[2017-05-02] MEDS: ceFAZolin 1 GM in Premix Bag 1 BAG IV SCH (20:07)
[2017-05-02] MEDS: Ketorolac 30 MG/ML SDV IVPUSH PRN (21:13)
[2017-05-02] MEDS: Melatonin 3 MG Tab PO SCH (21:14)
[2017-05-02] MEDS: Sennosides 8.6 MG Tab PO SCH (21:14)
[2017-05-02] MEDS: Magnesium Hydroxide 400 MG/5 ML Susp 30 ML Cup PO SCH (21:14)
[2017-05-03] MEDS: HYDROmorphone 0.5 MG/0.5 ML Syringe IVPUSH PRN ×5 (02:20→17:34)
[2017-05-03] MEDS: ceFAZolin 1 GM in Premix Bag 1 BAG IV SCH ×2 (03:33→11:44)
[2017-05-03] MEDS: Albuterol/Ipratropium 3.0-0.5 MG/3 ML Neb Soln NEB SCH ×4 (07:15→20:16)
[2017-05-03] MEDS: Pantoprazole 40 MG Tab.CR PO SCH (07:41)
[2017-05-03] MEDS: Magnesium Hydroxide 400 MG/5 ML Susp 30 ML Cup PO SCH ×2 (09:03→20:22)
[2017-05-03] MEDS: Sodium Chloride 0.9% 10 ML Syringe FLUSH SCH (09:03)
[2017-05-03] MEDS: Bisacodyl 5 MG Tab PO SCH (09:03)
[2017-05-03] MEDS: Aspirin 325 MG Tab.EC PO SCH (09:03)
[2017-05-03] MEDS: Sennosides 8.6 MG Tab PO SCH ×2 (09:03→20:20)
--- NOTE | 2017-05-03 09:24 | PCM.PN ---
- General Info Date of Service: 05/03/17 Functional Status: Reports: Pain Controlled, Ambulating - Review of Systems General: Reports: Weakness Neurological: Reports: Trouble Speaking, Weakness (left arm) Systems Review Comment:: No acute events overnight. Patient remains a phasic today but is able to do at least some vocalization. She is alert and interactive and follows commands and does answer her questions with head shakes or nods. 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 She has some left arm weakness but no left leg weakness. She is on supplemental oxygen. Urine output has been on the low side throughout the night. - Patient Data Vitals - Most Recent: Last Vital Signs Temp 36.8 C 05/03/17 08:00 Pulse 108 H 05/03/17 07:17 Resp 18 05/03/17 08:00 BP 156/63 H 05/03/17 08:00 Pulse Ox 91 L 05/03/17 08:00 Weight - Most Recent: 46.584 kg I&O - Last 24 Hours: Intake & Output 05/02/17 05/03/17 05/03/17 22:59 06:59 14:59 Intake Total 513 1077 Output Total 200 250 Balance 313 827 Lab Results Last 24 Hours: Laboratory Results - last 24 hr 05/02/17 05/03/17 05/03/17 Range/Units 10:30 05:15 05:15 WBC 11.7 H (4.5-11.0) K/uL RBC 2.65 L (3.30-5.50) M/uL Hgb 8.0 L (12.0-15.0) g/dL Hct 23.7 L (36.0-48.0) % MCV 89 (80-98) fL MCH 30 (27-31) pg MCHC 34 (32-36) % Plt Count 148 L (150-400) K/uL Neut % (Auto) 78 H (36-66) % Lymph % (Auto) 5 L (24-44) % [place] % (Auto) 17 H (2-6) % Eos % (Auto) 0 L (2-4) % Baso % (Auto) 0 (0-1) % Sodium 136 L (140-148) mmol/L Potassium 4.1 (3.6-5.2) mmol/L Chloride 107 (100-108) mmol/L Carbon Dioxide 22 (21-32) mmol/L Anion Gap 11.1 (5.0-14.0) mmol/L BUN 17 (7-18) mg/dL Creatinine 1.0 (0.6-1.0) mg/dL Est Cr Clr Drug Dosing 32.45 mL/min Estimated GFR (MDRD) 53 L (>60) Glucose 135 H (74-106) mg/dL Calcium 7.9 L (8.5-10.1) mg/dL Total Bilirubin 0.3 (0.2-1.0) mg/dL AST 35 (15-37) U/L ALT 23 (12-78) U/L Alkaline Phosphatase 54 (46-116) U/L Total Protein 5.0 L (6.4-8.2) g/dL Albumin 2.4 L (3.4-5.0) g/dL Globulin 2.6 (2.3-3.5) g/dL Albumin/Globulin Ratio 0.9 L (1.2-2.2) Blood Type A NEGATIVE Gel Antibody Screen Negative Med Orders - Current: Current Medications Acetaminophen (Tylenol) 650 mg PO Q4H PRN PRN Reason: Pain (Mild 1-3)/fever Al Hydroxide/Mg Hydroxide (Mag-Al Plus) 30 ml PO Q4H PRN PRN Reason: Constipation Albuterol (Proventil Neb Soln) 2.5 mg NEB Q4H PRN PRN Reason: Shortness Of Breath/wheezing Albuterol/Ipratropium (Duoneb 3.0-0.5 Mg/3 Ml) 3 ml NEB QIDRT [facility] Last Admin: 05/03/17 07:15 Dose: 3 ml Aspirin (Ecotrin) 325 mg PO DAILY [facility] Last Admin: 05/03/17 09:03 Dose: 325 mg Bisacodyl (Dulcolax) 10 mg PO DAILY [facility] Last Admin: 05/03/17 09:03 Dose: 10 mg Diazepam (Valium.) 5 mg PO Q6H PRN PRN Reason: Spasms Diphenhydramine HCl (Benadryl) 25 mg IVPUSH Q4H PRN PRN Reason: Itching Docusate Sodium (Colace) 100 mg PO BID PRN PRN Reason: Constipation Last Admin: 05/01/17 23:00 Dose: 100 mg Hydromorphone HCl (Dilaudid) 0.5 - 1 mg IVPUSH Q2H PRN PRN Reason: Pain Last Admin: 05/03/17 08:06 Dose: 0.5 mg Cefazolin Sodium/Dextrose 1 gm (/ Premix) 50 mls @ 100 mls/hr IV Q8H [facility] Stop: 05/03/17 12:29 Last Admin: 05/03/17 03:33 Dose: 100 mls/hr Ketorolac Tromethamine (Toradol) 15 mg IVPUSH Q8H PRN PRN Reason: Pain Stop: 05/07/17 14:33 Last Admin: 05/02/17 21:13 Dose: 15 mg Lorazepam (Ativan) 0.5 - 1 mg IV Q6H PRN PRN Reason: Agitation Last Admin: 05/02/17 05:21 Dose: 1 mg Magnesium Hydroxide (Milk Of Magnesia) 30 ml PO BID [facility] Last Admin: 05/03/17 09:03 Dose: 30 ml Melatonin (Melatonin) 6 mg PO BEDTIME [facility] Last Admin: 05/02/17 21:14 Dose: Not Given Morphine Sulfate (Morphine) 2 mg IVPUSH Q2H PRN PRN Reason: Pain Scopolamine Patch (Check) 1 each TOP DAILY [facility] Pantoprazole Sodium (Protonix) 40 mg PO ACBREAKFAST [facility] Last Admin: 05/03/17 07:41 Dose: 40 mg Scopolamine (Transderm-Scop) 1.5 mg TOP Q72H [facility] Stop: 05/05/17 10:00 Last Admin: 05/02/17 10:49 Dose: 1.5 mg Senna (Senna) 8.6 mg PO BID [facility] Last Admin: 05/03/17 09:03 Dose: 8.6 mg Sodium Chloride (Saline Flush) 10 ml FLUSH DAILY [facility] Last Admin: 05/03/17 09:03 Dose: 10 ml Tramadol HCl (Ultram) 100 mg PO Q6H PRN PRN Reason: Pain Zolpidem Tartrate (Ambien) 5 mg PO BEDTIME PRN PRN Reason: Sleep Discontinued Medications Bupivacaine HCl/Epinephrine Bitart (Marcaine 0.5%/Epinephrine 1:200,000) Confirm Administered Dose 50 ml .ROUTE .STK-MED ONE Stop: 05/02/17 07:49 Last Admin: 05/02/17 12:08 Dose: 20 ml Ropivacaine 49.25 ml/Ketorolac Tromethamine 30 mg/Epinephrine HCl 0.5 mg/ Clonidine HCl 80 mcg/ Sodium Chloride 48.45 ml 0 ml INJECT ONETIME ONE Stop: 05/02/17 11:01 Last Admin: 05/02/17 12:20 Dose: 100 ml Dexamethasone (Dexamethasone) Confirm Administered Dose 4 mg .ROUTE .STK-MED ONE Stop: 05/02/17 12:42 Fentanyl (Sublimaze) 25 mcg IVPUSH ONETIME ONE Stop: 05/01/17 19:50 Last Admin: 05/01/17 19:56 Dose: 25 mcg Fentanyl (Sublimaze) Confirm Administered Dose 100 mcg .ROUTE .STK-MED ONE Stop: 05/02/17 07:44 Flumazenil (Romazicon) Confirm Administered Dose 0.5 mg .ROUTE .STK-MED ONE Stop: 05/02/17 12:58 Glycopyrrolate () Confirm Administered Dose 1 mg .ROUTE .STK-MED ONE Stop: 05/02/17 12:41 Hydromorphone HCl (Dilaudid) 0.5 mg IVPUSH ONETIME ONE Stop: 05/01/17 20:33 Last Admin: 05/01/17 20:43 Dose: 0.5 mg Sodium Chloride (Normal Saline) 1,000 mls @ 100 mls/hr IV ASDIRECTED [facility] Last Admin: 05/02/17 23:55 Dose: 100 mls/hr Cefazolin Sodium/Dextrose 2 gm (/ Premix) 50 mls @ 100 mls/hr IV ONCALL ONE Stop: 05/02/17 11:59 Last Admin: 05/02/17 10:50 Dose: 100 mls/hr Tranexamic Acid 450 mg/ Sodium (Chloride) 54.5 mls @ 218 mls/hr IV Q3H [facility] Stop: 05/02/17 14:44 Last Admin: 05/02/17 12:20 Dose: 218 mls/hr Tranexamic Acid 450 mg/ Sodium (Chloride) 54.5 mls @ 218 mls/hr IV Q3H [facility] Stop: 05/02/17 14:14 Last Admin: 05/02/17 13:22 Dose: 218 mls/hr Acetaminophen 1,000 mg/ Premix 100 mls @ 400 mls/hr IV NOW ONE Stop: 05/02/17 16:14 Last Admin: 05/02/17 15:26 Dose: 400 mls/hr Ketamine HCl (Ketalar) 23 mg IV ASDIRECTED [facility] Stop: 05/02/17 14:00 Midazolam HCl (Versed 1 Mg/Ml) Confirm Administered Dose 2 mg .ROUTE .STK-MED ONE Stop: 05/02/17 07:44 Naloxone HCl (Narcan) Confirm Administered Dose 0.4 mg .ROUTE .STK-MED ONE Stop: 05/02/17 12:58 Neostigmine Methylsulfate (Neostigmine) Confirm Administered Dose 5 mg .ROUTE .STK-MED ONE Stop: 05/02/17 12:41 Ondansetron HCl (Zofran) Confirm Administered Dose 4 mg .ROUTE .STK-MED ONE Stop: 05/02/17 12:42 Oxycodone HCl (Oxycodone) 5 mg PO Q4H PRN PRN Reason: Pain (moderate 4-6) Last Admin: 05/02/17 09:18 Dose: 5 mg Oxycodone/Acetaminophen (Percocet 325-5 Mg) 2 tab PO Q4H PRN PRN Reason: Pain Pantoprazole Sodium (Protonix Iv) 40 mg IVPUSH DAILY [facility] Last Admin: 05/01/17 23:00 Dose: 40 mg Pantoprazole Sodium (Protonix Iv) 40 mg IVPUSH DAILY@1130 [facility] Povidone Iodine (Betadine 10% Soln) Confirm Administered Dose 1 ml .ROUTE .STK- MED ONE Stop: 05/02/17 07:49 Propofol (Diprivan 20 Ml) Confirm Administered Dose 200 mg .ROUTE .STK-MED ONE Stop: 05/02/17 07:44 - Exam Quality Assessment: Supplemental Oxygen General: Alert, Oriented, Cooperative, Mild Distress HEENT: Pupils Reactive Neck: Supple Lungs: Normal Respiratory Effort, Rhonchi (mild throughout) Cardiovascular: Regular Rate, Regular Rhythm, Murmurs GI/Abdominal Exam: Soft, No Distention Extremities: No Pedal Edema, Other (right elbow wrapped in coban. Right hip dressing with mostly blood soaked bandages) Skin: Warm, Dry Psy/Mental Status: Alert, Normal Affect - Problem List Review Problem List Initiated/Reviewed/Updated: Yes - My Orders Last 24 Hours: My Active Orders 05/02/17 10:26 RT Aerosol Therapy [RC] ASDIRECTED 05/02/17 11:00 Albuterol/Ipratropium [DuoNeb 3.0-0.5 MG/3 ML] 3 ml NEB QIDRT 05/02/17 14:21 Transfer Patient (Change bed) [ADT] Routine 05/02/17 17:50 Head wo Cont [CT] Routine 05/03/17 07:30 Pantoprazole [ProTONIX] 40 mg PO ACBREAKFAST 05/03/17 09:16 Consult to Speech Language Pathology [[employer] Evaluation and Treatment] [CONS] Routine 05/03/17 09:22 oxyCODONE 5 - 10 mg PO Q4H PRN 05/03/17 09:30 Dextrose 5%-1/2 Normal Saline with KCl 20 mEq @ 75 mL/Hr (1000 mL) D5 1/2 NS w / 20 mEq/L KCl 1,000 ml IV ASDIRECTED 05/03/17 Lunch Clear Liquid Diet [DIET] - Plan Plan:: Assessment and Plan - Right Intertrochanteric fracture of right hip - surgical intervention completed yesterday with IM nailing. Pain is been well-controlled. Given multiple comorbidities her recovery process will be difficult and I fear that her morbidity and mortality may be on the high side given all of her problems including COPD. Hemoglobin has dropped but does not yet require transfusion though I would suspect she may need one tomorrow morning. 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 I suspect that the surgery may have stressed this previously ischemic area leading to new difficulties with her speech. She had very similar problems with her stroke 10 years ago. -Speech pathology consultation -Avoid extremes of hypertension or hypotension -Daily aspirin Coronary artery disease - Pacemaker, PVD, HTN, CHF, CABG 2007. these seem to be stable at this time. -continue medical management -telemetry COPD - still requiring supplemental oxygen at this time. No evidence for acute exacerbation. -Scheduled and as needed nebulizers -pulse ox -albuterol nebs prn Maintenance issues - - DVT prophylaxis - mechanical, SCD - GI prophylaxis - PPI - Nutrition - clear liquids - Serna catheter - placed in ER, will remain in place for strict intake and output monitoring postoperatively Disposition - anticipate discharge to the half-way after the hospital stay Carlitos Davis M.D.
[2017-05-03] MEDS: D5 1/2 NS w/ 20 mEq/L KCl 1,000 ML IV SCH (10:13)
--- NOTE | 2017-05-03 11:11 | PCM.PN ---
- General Info Date of Service: 05/03/17 Admission Dx/Problem (Free Text): patient is status postop day 1 of a right hip nailing. She continues to work with PT OT on strengthening. Pain is under control with oral pain medication. Medical management is working with her on further issues at this time. Functional Status: Reports: Pain Controlled, Urinating - Patient Data Vitals - Most Recent: Last Vital Signs Temp 37.7 C 05/03/17 10:00 Pulse 102 H 05/03/17 10:44 Resp 9 L 05/03/17 10:00 BP 121/66 05/03/17 10:00 Pulse Ox 90 L 05/03/17 10:44 Weight - Most Recent: 102 lb 11.202 oz I&O - Last 24 Hours: Intake & Output 05/02/17 05/03/17 05/03/17 22:59 06:59 14:59 Intake Total 513 1077 Output Total 200 250 Balance 313 827 Lab Results Last 24 Hours: Laboratory Results - last 24 hr 05/02/17 05/03/17 05/03/17 Range/Units 10:30 05:15 05:15 WBC 11.7 H (4.5-11.0) K/uL RBC 2.65 L (3.30-5.50) M/uL Hgb 8.0 L (12.0-15.0) g/dL Hct 23.7 L (36.0-48.0) % MCV 89 (80-98) fL MCH 30 (27-31) pg MCHC 34 (32-36) % Plt Count 148 L (150-400) K/uL Neut % (Auto) 78 H (36-66) % Lymph % (Auto) 5 L (24-44) % [place] % (Auto) 17 H (2-6) % Eos % (Auto) 0 L (2-4) % Baso % (Auto) 0 (0-1) % Sodium 136 L (140-148) mmol/L Potassium 4.1 (3.6-5.2) mmol/L Chloride 107 (100-108) mmol/L Carbon Dioxide 22 (21-32) mmol/L Anion Gap 11.1 (5.0-14.0) mmol/L BUN 17 (7-18) mg/dL Creatinine 1.0 (0.6-1.0) mg/dL Est Cr Clr Drug Dosing 32.45 mL/min Estimated GFR (MDRD) 53 L (>60) Glucose 135 H (74-106) mg/dL Calcium 7.9 L (8.5-10.1) mg/dL Total Bilirubin 0.3 (0.2-1.0) mg/dL AST 35 (15-37) U/L ALT 23 (12-78) U/L Alkaline Phosphatase 54 (46-116) U/L Total Protein 5.0 L (6.4-8.2) g/dL Albumin 2.4 L (3.4-5.0) g/dL Globulin 2.6 (2.3-3.5) g/dL Albumin/Globulin Ratio 0.9 L (1.2-2.2) Blood Type A NEGATIVE Gel Antibody Screen Negative Med Orders - Current: Current Medications Acetaminophen (Tylenol) 650 mg PO Q4H PRN PRN Reason: Pain (Mild 1-3)/fever Al Hydroxide/Mg Hydroxide (Mag-Al Plus) 30 ml PO Q4H PRN PRN Reason: Constipation Albuterol (Proventil Neb Soln) 2.5 mg NEB Q4H PRN PRN Reason: Shortness Of Breath/wheezing Albuterol/Ipratropium (Duoneb 3.0-0.5 Mg/3 Ml) 3 ml NEB QIDRT [facility] Last Admin: 05/03/17 10:41 Dose: 3 ml Aspirin (Ecotrin) 325 mg PO DAILY [facility] Last Admin: 05/03/17 09:03 Dose: 325 mg Bisacodyl (Dulcolax) 10 mg PO DAILY [facility] Last Admin: 05/03/17 09:03 Dose: 10 mg Diazepam (Valium.) 5 mg PO Q6H PRN PRN Reason: Spasms Diphenhydramine HCl (Benadryl) 25 mg IVPUSH Q4H PRN PRN Reason: Itching Docusate Sodium (Colace) 100 mg PO BID PRN PRN Reason: Constipation Last Admin: 05/01/17 23:00 Dose: 100 mg Hydromorphone HCl (Dilaudid) 0.5 - 1 mg IVPUSH Q2H PRN PRN Reason: Pain Last Admin: 05/03/17 08:06 Dose: 0.5 mg Cefazolin Sodium/Dextrose 1 gm (/ Premix) 50 mls @ 100 mls/hr IV Q8H [facility] Stop: 05/03/17 12:29 Last Admin: 05/03/17 03:33 Dose: 100 mls/hr Potassium Chloride/Dextrose/Sod Cl (D5 1/2 Ns W/ 20 Meq/L Kcl) 1,000 mls @ 75 mls/hr IV ASDIRECTED [facility] Last Admin: 05/03/17 10:13 Dose: 75 mls/hr Ketorolac Tromethamine (Toradol) 15 mg IVPUSH Q8H PRN PRN Reason: Pain Stop: 05/07/17 14:33 Last Admin: 05/02/17 21:13 Dose: 15 mg Lorazepam (Ativan) 0.5 - 1 mg IV Q6H PRN PRN Reason: Agitation Last Admin: 05/02/17 05:21 Dose: 1 mg Magnesium Hydroxide (Milk Of Magnesia) 30 ml PO BID [facility] Last Admin: 05/03/17 09:03 Dose: 30 ml Melatonin (Melatonin) 6 mg PO BEDTIME [facility] Last Admin: 05/02/17 21:14 Dose: Not Given Morphine Sulfate (Morphine) 2 mg IVPUSH Q2H PRN PRN Reason: Pain Scopolamine Patch (Check) 1 each TOP DAILY [facility] Oxycodone HCl (Oxycodone) 5 - 10 mg PO Q4H PRN PRN Reason: Pain (moderate 4-6) Pantoprazole Sodium (Protonix) 40 mg PO ACBREAKFAST [facility] Last Admin: 05/03/17 07:41 Dose: 40 mg Scopolamine (Transderm-Scop) 1.5 mg TOP Q72H [facility] Stop: 05/05/17 10:00 Last Admin: 05/02/17 10:49 Dose: 1.5 mg Senna (Senna) 8.6 mg PO BID [facility] Last Admin: 05/03/17 09:03 Dose: 8.6 mg Sodium Chloride (Saline Flush) 10 ml FLUSH DAILY [facility] Last Admin: 05/03/17 09:03 Dose: 10 ml Tramadol HCl (Ultram) 100 mg PO Q6H PRN PRN Reason: Pain Zolpidem Tartrate (Ambien) 5 mg PO BEDTIME PRN PRN Reason: Sleep Discontinued Medications Bupivacaine HCl/Epinephrine Bitart (Marcaine 0.5%/Epinephrine 1:200,000) Confirm Administered Dose 50 ml .ROUTE .STK-MED ONE Stop: 05/02/17 07:49 Last Admin: 05/02/17 12:08 Dose: 20 ml Ropivacaine 49.25 ml/Ketorolac Tromethamine 30 mg/Epinephrine HCl 0.5 mg/ Clonidine HCl 80 mcg/ Sodium Chloride 48.45 ml 0 ml INJECT ONETIME ONE Stop: 05/02/17 11:01 Last Admin: 05/02/17 12:20 Dose: 100 ml Dexamethasone (Dexamethasone) Confirm Administered Dose 4 mg .ROUTE .STK-MED ONE Stop: 05/02/17 12:42 Fentanyl (Sublimaze) 25 mcg IVPUSH ONETIME ONE Stop: 05/01/17 19:50 Last Admin: 05/01/17 19:56 Dose: 25 mcg Fentanyl (Sublimaze) Confirm Administered Dose 100 mcg .ROUTE .STK-MED ONE Stop: 05/02/17 07:44 Flumazenil (Romazicon) Confirm Administered Dose 0.5 mg .ROUTE .STK-MED ONE Stop: 05/02/17 12:58 Glycopyrrolate () Confirm Administered Dose 1 mg .ROUTE .STK-MED ONE Stop: 05/02/17 12:41 Hydromorphone HCl (Dilaudid) 0.5 mg IVPUSH ONETIME ONE Stop: 05/01/17 20:33 Last Admin: 05/01/17 20:43 Dose: 0.5 mg Sodium Chloride (Normal Saline) 1,000 mls @ 100 mls/hr IV ASDIRECTED [facility] Last Admin: 05/02/17 23:55 Dose: 100 mls/hr Cefazolin Sodium/Dextrose 2 gm (/ Premix) 50 mls @ 100 mls/hr IV ONCALL ONE Stop: 05/02/17 11:59 Last Admin: 05/02/17 10:50 Dose: 100 mls/hr Tranexamic Acid 450 mg/ Sodium (Chloride) 54.5 mls @ 218 mls/hr IV Q3H [facility] Stop: 05/02/17 14:44 Last Admin: 05/02/17 12:20 Dose: 218 mls/hr Tranexamic Acid 450 mg/ Sodium (Chloride) 54.5 mls @ 218 mls/hr IV Q3H [facility] Stop: 05/02/17 14:14 Last Admin: 05/02/17 13:22 Dose: 218 mls/hr Acetaminophen 1,000 mg/ Premix 100 mls @ 400 mls/hr IV NOW ONE Stop: 05/02/17 16:14 Last Admin: 05/02/17 15:26 Dose: 400 mls/hr Ketamine HCl (Ketalar) 23 mg IV ASDIRECTED [facility] Stop: 05/02/17 14:00 Midazolam HCl (Versed 1 Mg/Ml) Confirm Administered Dose 2 mg .ROUTE .STK-MED ONE Stop: 05/02/17 07:44 Naloxone HCl (Narcan) Confirm Administered Dose 0.4 mg .ROUTE .STK-MED ONE Stop: 05/02/17 12:58 Neostigmine Methylsulfate (Neostigmine) Confirm Administered Dose 5 mg .ROUTE .STK-MED ONE Stop: 05/02/17 12:41 Ondansetron HCl (Zofran) Confirm Administered Dose 4 mg .ROUTE .STK-MED ONE Stop: 05/02/17 12:42 Oxycodone HCl (Oxycodone) 5 mg PO Q4H PRN PRN Reason: Pain (moderate 4-6) Last Admin: 05/02/17 09:18 Dose: 5 mg Oxycodone/Acetaminophen (Percocet 325-5 Mg) 2 tab PO Q4H PRN PRN Reason: Pain Pantoprazole Sodium (Protonix Iv) 40 mg IVPUSH DAILY [facility] Last Admin: 05/01/17 23:00 Dose: 40 mg Pantoprazole Sodium (Protonix Iv) 40 mg IVPUSH DAILY@1130 [facility] Povidone Iodine (Betadine 10% Soln) Confirm Administered Dose 1 ml .ROUTE .STK- MED ONE Stop: 05/02/17 07:49 Propofol (Diprivan 20 Ml) Confirm Administered Dose 200 mg .ROUTE .STK-MED ONE Stop: 05/02/17 07:44 - Exam General: Alert Extremities: Normal Inspection, Non-Tender, No Pedal Edema, Normal Capillary Refill Peripheral Pulses: 2+: Dorsalis Pedis (L), Dorsalis Pedis (R) Skin: Warm, Dry, Intact Wound/Incisions: Healing Well, Dressing Dry and Intact Psy/Mental Status: Alert - Problem List Review Problem List Initiated/Reviewed/Updated: Yes - My Orders Last 24 Hours: My Active Orders 05/02/17 14:33 Ambulate [RC] ASDIRECTED Head of Bed Elevation [RC] CONTINUOUS May Shower [RC] ASDIRECTED Neurovascular Check [RC] Q4HR RT Incentive Spirometry [RC] Q1HWA Turn, Cough, Deep Breathe [RC] Q1HWA Up to Chair [RC] TIDMEALS Urinary Catheter Removal [RC] Per Unit Routine Wound Care [RC] Q12H OT Evaluation and Treatment [CONS] Routine PT Evaluation and Treatment [CONS] Routine Respiratory Care Assess and Treatment [CONS] Routine Alum Hydrox/Mag Hydrox/Simeth [Mag-Al Plus] 30 ml PO Q4H PRN Diazepam [Valium] 5 mg PO Q6H PRN Ketorolac [Toradol] 15 mg IVPUSH Q8H PRN Morphine 2 mg IVPUSH Q2H PRN Zolpidem [Ambien] 5 mg PO BEDTIME PRN diphenhydrAMINE [Benadryl] 25 mg IVPUSH Q4H PRN traMADol [Ultram] 100 mg PO Q6H PRN 05/02/17 14:45 Convert IV to Saline Lock [OM.PC] PER UNIT ROUTINE Ice Therapy [OM.PC] PER UNIT ROUTINE Oral Care [OM.PC] BID 05/02/17 20:00 ceFAZolin [Ancef] 1 gm Premix Bag 1 bag IV Q8H 05/02/17 21:00 Magnesium Hydroxide [Milk of Magnesia] 30 ml PO BID Sennosides [Senna] 8.6 mg PO BID 05/03/17 09:00 Aspirin [Ecotrin] 325 mg PO DAILY Bisacodyl [Dulcolax] 10 mg PO DAILY Sodium Chloride 0.9% [Saline Flush] 10 ml FLUSH DAILY 05/03/17 14:45 Oral Care [OM.PC] BID 05/04/17 14:45 Oral Care [OM.PC] BID 05/05/17 14:45 Oral Care [OM.PC] BID 05/06/17 14:45 Oral Care [OM.PC] BID 05/07/17 14:45 Oral Care [OM.PC] BID 05/08/17 14:45 Oral Care [OM.PC] BID 05/09/17 14:45 Oral Care [OM.PC] BID 05/10/17 14:45 Oral Care [OM.PC] BID 05/11/17 14:45 Oral Care [OM.PC] BID - Plan Plan:: Assessment and Plan - Right Intertrochanteric fracture of right hip - patient will continue to work with medical management on further evaluations. She is to continue with PT OT on strengthening. She is to continue with oral pain medication as needed for pain. She is to follow-up with orthopedic clinic in 2 weeks. She is to notify us if she has any other issues in the meantime.
[2017-05-03] MEDS ORDERED: Acetaminophen/oxyCODONE 325-5 MG Tab PO PRN (14:33)
[2017-05-03] MEDS: SCOPOLAMINE PATCH CHECK TOP SCH (15:09)
[2017-05-03] MEDS ORDERED: Sodium Chloride 0.9% 500 ML IV SCH (16:45)
[2017-05-03] MEDS: Melatonin 3 MG Tab PO SCH (20:16)
[2017-05-03] MEDS: Morphine 2 MG/ML Syringe IVPUSH PRN (21:03)
[2017-05-03] MEDS: LORazepam 2 MG/ML SDV IV PRN (21:26)
[2017-05-04] MEDS: D5 1/2 NS w/ 20 mEq/L KCl 1,000 ML IV SCH (00:44)
[2017-05-04] MEDS: HYDROmorphone 0.5 MG/0.5 ML Syringe IVPUSH PRN ×5 (02:21→23:14)
[2017-05-04] MEDS ORDERED: Sodium Chloride 0.9% 1,000 ML IV SCH ×2 (04:00→14:30)
[2017-05-04] MEDS: Ketorolac 30 MG/ML SDV IVPUSH PRN (05:29)
[2017-05-04] MEDS: Albuterol/Ipratropium 3.0-0.5 MG/3 ML Neb Soln NEB SCH ×4 (07:20→20:03)
[2017-05-04] MEDS: Pantoprazole 40 MG Tab.CR PO SCH (07:41)
[2017-05-04] MEDS: SCOPOLAMINE PATCH CHECK TOP SCH (10:12)
[2017-05-04] MEDS: Bisacodyl 5 MG Tab PO SCH (10:12)
[2017-05-04] MEDS: Magnesium Hydroxide 400 MG/5 ML Susp 30 ML Cup PO SCH ×2 (10:12→20:02)
[2017-05-04] MEDS: Sennosides 8.6 MG Tab PO SCH ×2 (10:13→20:03)
[2017-05-04] MEDS: Aspirin 325 MG Tab.EC PO SCH (10:20)
[2017-05-04] MEDS: Sodium Chloride 0.9% 10 ML Syringe FLUSH SCH (10:25)
--- NOTE | 2017-05-04 10:25 | PCM.PN ---
- General Info Date of Service: 05/04/17 Subjective Update: Ms. Trivedi is an 81-year-old woman who fell and experienced right hip fracture , status post surgical repair by Dr. Bryson Vizcarra. 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 Since surgery she has had new expressive a aphasia as well as left upper extremity weakness. Has required ongoing IV fluids to maintain adequate urine output and is also developed increased hypoxia requiring more supplemental oxygen. Because of her significant expressive a aphasia is unable to provide significant information concerning symptoms or review of systems. - Patient Data Vitals - Most Recent: Last Vital Signs Temp 99 F 05/04/17 10:10 Pulse 105 H 05/04/17 08:00 Resp 14 05/04/17 10:10 BP 119/53 L 05/04/17 10:10 Pulse Ox 90 L 05/04/17 10:10 Weight - Most Recent: 103 lb 13.404 oz I&O - Last 24 Hours: Intake & Output 05/03/17 05/04/17 05/04/17 22:59 06:59 14:59 Intake Total 3236 0 Output Total 280 189 Balance -280 3047 0 Lab Results Last 24 Hours: Laboratory Results - last 24 hr 05/02/17 05/04/17 05/04/17 Range/Units 10:30 05:59 05:59 WBC 9.3 (4.5-11.0) K/uL RBC 2.44 L (3.30-5.50) M/uL Hgb 7.1 L (12.0-15.0) g/dL Hct 21.9 L (36.0-48.0) % MCV 90 (80-98) fL MCH 29 (27-31) pg MCHC 32 (32-36) % Plt Count 138 L (150-400) K/uL Neut % (Auto) 77 H (36-66) % Lymph % (Auto) 9 L (24-44) % [place] % (Auto) 14 H (2-6) % Eos % (Auto) 0 L (2-4) % Baso % (Auto) 0 (0-1) % Sodium 139 L (140-148) mmol/L Potassium 4.2 (3.6-5.2) mmol/L Chloride 110 H (100-108) mmol/L Carbon Dioxide 24 (21-32) mmol/L Anion Gap 9.2 (5.0-14.0) mmol/L BUN 17 (7-18) mg/dL Creatinine 0.8 (0.6-1.0) mg/dL Est Cr Clr Drug Dosing 41.01 mL/min Estimated GFR (MDRD) > 60 (>60) Glucose 111 H (74-106) mg/dL Calcium 7.9 L (8.5-10.1) mg/dL Total Bilirubin 0.6 D (0.2-1.0) mg/dL AST 53 H (15-37) U/L ALT 22 (12-78) U/L Alkaline Phosphatase 50 (46-116) U/L Total Protein 4.8 L (6.4-8.2) g/dL Albumin 2.3 L (3.4-5.0) g/dL Globulin 2.5 (2.3-3.5) g/dL Albumin/Globulin Ratio 0.9 L (1.2-2.2) Blood Type A NEGATIVE Gel Antibody Screen Negative Crossmatch See Detail Med Orders - Current: Current Medications Acetaminophen (Tylenol) 650 mg PO Q4H PRN PRN Reason: Pain (Mild 1-3)/fever Al Hydroxide/Mg Hydroxide (Mag-Al Plus) 30 ml PO Q4H PRN PRN Reason: Constipation Albuterol (Proventil Neb Soln) 2.5 mg NEB Q4H PRN PRN Reason: Shortness Of Breath/wheezing Last Admin: 05/03/17 13:18 Dose: 2.5 mg Albuterol/Ipratropium (Duoneb 3.0-0.5 Mg/3 Ml) 3 ml NEB QIDRT [facility] Last Admin: 05/04/17 07:20 Dose: 3 ml Aspirin (Ecotrin) 325 mg PO DAILY [facility] Last Admin: 05/03/17 09:03 Dose: 325 mg Bisacodyl (Dulcolax) 10 mg PO DAILY [facility] Last Admin: 05/04/17 10:12 Dose: Not Given Diazepam (Valium.) 5 mg PO Q6H PRN PRN Reason: Spasms Diphenhydramine HCl (Benadryl) 25 mg IVPUSH Q4H PRN PRN Reason: Itching Docusate Sodium (Colace) 100 mg PO BID PRN PRN Reason: Constipation Last Admin: 05/01/17 23:00 Dose: 100 mg Hydromorphone HCl (Dilaudid) 0.5 - 1 mg IVPUSH Q2H PRN PRN Reason: Pain Last Admin: 05/04/17 06:14 Dose: 0.5 mg Ketorolac Tromethamine (Toradol) 15 mg IVPUSH Q8H PRN PRN Reason: Pain Stop: 05/07/17 14:33 Last Admin: 05/04/17 05:29 Dose: 15 mg Lorazepam (Ativan) 0.5 - 1 mg IV Q6H PRN PRN Reason: Agitation Last Admin: 05/03/17 21:26 Dose: 1 mg Magnesium Hydroxide (Milk Of Magnesia) 30 ml PO BID [facility] Last Admin: 05/04/17 10:12 Dose: Not Given Melatonin (Melatonin) 6 mg PO BEDTIME [facility] Last Admin: 05/03/17 20:16 Dose: 6 mg Morphine Sulfate (Morphine) 2 mg IVPUSH Q2H PRN PRN Reason: Pain Last Admin: 05/03/17 21:03 Dose: 2 mg Scopolamine Patch (Check) 1 each TOP DAILY [facility] Last Admin: 05/04/17 10:12 Dose: Not Given Oxycodone HCl (Oxycodone) 5 - 10 mg PO Q4H PRN PRN Reason: Pain (moderate 4-6) Pantoprazole Sodium (Protonix) 40 mg PO ACBREAKFAST [facility] Last Admin: 05/04/17 07:41 Dose: 40 mg Scopolamine (Transderm-Scop) 1.5 mg TOP Q72H [facility] Stop: 05/05/17 10:00 Last Admin: 05/02/17 10:49 Dose: 1.5 mg Senna (Senna) 8.6 mg PO BID [facility] Last Admin: 05/04/17 10:13 Dose: Not Given Sodium Chloride (Saline Flush) 10 ml FLUSH DAILY [facility] Last Admin: 05/03/17 09:03 Dose: 10 ml Tramadol HCl (Ultram) 100 mg PO Q6H PRN PRN Reason: Pain Zolpidem Tartrate (Ambien) 5 mg PO BEDTIME PRN PRN Reason: Sleep Discontinued Medications Bupivacaine HCl/Epinephrine Bitart (Marcaine 0.5%/Epinephrine 1:200,000) Confirm Administered Dose 50 ml .ROUTE .STK-MED ONE Stop: 05/02/17 07:49 Last Admin: 05/02/17 12:08 Dose: 20 ml Ropivacaine 49.25 ml/Ketorolac Tromethamine 30 mg/Epinephrine HCl 0.5 mg/ Clonidine HCl 80 mcg/ Sodium Chloride 48.45 ml 0 ml INJECT ONETIME ONE Stop: 05/02/17 11:01 Last Admin: 05/02/17 12:20 Dose: 100 ml Dexamethasone (Dexamethasone) Confirm Administered Dose 4 mg .ROUTE .STK-MED ONE Stop: 05/02/17 12:42 Fentanyl (Sublimaze) 25 mcg IVPUSH ONETIME ONE Stop: 05/01/17 19:50 Last Admin: 05/01/17 19:56 Dose: 25 mcg Fentanyl (Sublimaze) Confirm Administered Dose 100 mcg .ROUTE .[facility]-MED ONE Stop: 05/02/17 07:44 Flumazenil (Romazicon) Confirm Administered Dose 0.5 mg .ROUTE .[facility]-MED ONE Stop: 05/02/17 12:58 Glycopyrrolate () Confirm Administered Dose 1 mg .ROUTE .STK-MED ONE Stop: 05/02/17 12:41 Hydromorphone HCl (Dilaudid) 0.5 mg IVPUSH ONETIME ONE Stop: 05/01/17 20:33 Last Admin: 05/01/17 20:43 Dose: 0.5 mg Sodium Chloride (Normal Saline) 1,000 mls @ 100 mls/hr IV ASDIRECTED [facility] Last Admin: 05/02/17 23:55 Dose: 100 mls/hr Cefazolin Sodium/Dextrose 2 gm (/ Premix) 50 mls @ 100 mls/hr IV ONCALL ONE Stop: 05/02/17 11:59 Last Admin: 05/02/17 10:50 Dose: 100 mls/hr Tranexamic Acid 450 mg/ Sodium (Chloride) 54.5 mls @ 218 mls/hr IV Q3H [facility] Stop: 05/02/17 14:44 Last Admin: 05/02/17 12:20 Dose: 218 mls/hr Tranexamic Acid 450 mg/ Sodium (Chloride) 54.5 mls @ 218 mls/hr IV Q3H [facility] Stop: 05/02/17 14:14 Last Admin: 05/02/17 13:22 Dose: 218 mls/hr Acetaminophen 1,000 mg/ Premix 100 mls @ 400 mls/hr IV NOW ONE Stop: 05/02/17 16:14 Last Admin: 05/02/17 15:26 Dose: 400 mls/hr Cefazolin Sodium/Dextrose 1 gm (/ Premix) 50 mls @ 100 mls/hr IV Q8H [facility] Stop: 05/03/17 12:29 Last Admin: 05/03/17 11:44 Dose: 100 mls/hr Potassium Chloride/Dextrose/Sod Cl (D5 1/2 Ns W/ 20 Meq/L Kcl) 1,000 mls @ 75 mls/hr IV ASDIRECTED [facility] Last Infusion: 05/04/17 03:52 Dose: 0 mls/hr Sodium Chloride (Normal Saline) 500 mls @ 500 mls/hr IV ASDIRECTED [facility] Stop: 05/03/17 17:46 Last Admin: 05/03/17 16:58 Dose: 500 mls/hr Sodium Chloride (Normal Saline) 1,000 mls @ 250 mls/hr IV ASDIRECTED [facility] Stop: 05/04/17 08:00 Last Admin: 05/04/17 03:54 Dose: 250 mls/hr Ketamine HCl (Ketalar) 23 mg IV ASDIRECTED [facility] Stop: 05/02/17 14:00 Midazolam HCl (Versed 1 Mg/Ml) Confirm Administered Dose 2 mg .ROUTE .STK-MED ONE Stop: 05/02/17 07:44 Naloxone HCl (Narcan) Confirm Administered Dose 0.4 mg .ROUTE .STK-MED ONE Stop: 05/02/17 12:58 Neostigmine Methylsulfate (Neostigmine) Confirm Administered Dose 5 mg .ROUTE .STK-MED ONE Stop: 05/02/17 12:41 Ondansetron HCl (Zofran) Confirm Administered Dose 4 mg .ROUTE .STK-MED ONE Stop: 05/02/17 12:42 Oxycodone HCl (Oxycodone) 5 mg PO Q4H PRN PRN Reason: Pain (moderate 4-6) Last Admin: 05/02/17 09:18 Dose: 5 mg Oxycodone/Acetaminophen (Percocet 325-5 Mg) 2 tab PO Q4H PRN PRN Reason: Pain Pantoprazole Sodium (Protonix Iv) 40 mg IVPUSH DAILY [facility] Last Admin: 05/01/17 23:00 Dose: 40 mg Pantoprazole Sodium (Protonix Iv) 40 mg IVPUSH DAILY@1130 [facility] Povidone Iodine (Betadine 10% Soln) Confirm Administered Dose 1 ml .ROUTE .STK- MED ONE Stop: 05/02/17 07:49 Propofol (Diprivan 20 Ml) Confirm Administered Dose 200 mg .ROUTE .STK-MED ONE Stop: 05/02/17 07:44 - Exam Quality Assessment: Supplemental Oxygen, DVT Prophylaxis General: Alert, Cooperative, Mild Distress Lungs: Clear to Auscultation, Normal Respiratory Effort Cardiovascular: Regular Rate, Regular Rhythm, No Murmurs GI/Abdominal Exam: Soft, Non-Tender, No Organomegaly, No Distention Extremities: Leg Pain Skin: Warm, Dry Neurological: No: Normal Speech, Strength Equal Bilateral - Problem List Review Problem List Initiated/Reviewed/Updated: Yes - My Orders Last 24 Hours: My Active Orders 05/04/17 08:11 Transfuse Red Blood Cells [COMM] Urgent 05/04/17 10:19 Brain w wo Cont [MR] Stat Chest 1V Frontal [CR] Urgent 05/04/17 14:00 HGB [HEMOGLOBIN] [HEME] Stat 05/05/17 05:00 BASIC METABOLIC PANEL,BMP [CHEM] Timed CBC WITH AUTO DIFF [HEME] Timed MAGNESIUM [CHEM] Timed - Plan Plan:: Assessment and Plan - Right Intertrochanteric fracture of right hip - surgical intervention completed 2 days ago with IM nailing. Pain is been well-controlled. Given multiple comorbidities her recovery process will be difficult and I fear that her morbidity and mortality may be on the high side given all of her problems including COPD. -Pain control -Surgical follow-up per orthopedic team -IV hydration; Normal Saline at 100ml/hr -Physical therapy Acute blood loss anemia-secondary to recent hip fracture and surgery, hemoglobin is now down to 7. -Transfuse one unit of red blood cells -Repeat hemoglobin level later today and in a.m. Expressive aphasia associated with left arm weakness-probably acute CVA -MRI today of the brain with and without contrast -Speech pathology consultation -Avoid extremes of hypertension or hypotension -Daily aspirin Coronary artery disease - Pacemaker, PVD, HTN, CHF, CABG 2007. these seem to be stable at this time. -continue medical management -telemetry COPD - supplemental oxygen requirements have increased over the past 24 hours -Repeat chest x-ray today -Scheduled and as needed nebulizers -pulse ox -albuterol nebs prn Maintenance issues - - DVT prophylaxis - mechanical, SCD - GI prophylaxis - PPI - Nutrition - clear liquids - Serna catheter - placed in ER, will remain in place for strict intake and output monitoring postoperatively Disposition - anticipate [facility] after the hospital stay
[2017-05-04] MEDS ORDERED: Iopamidol 612 MG/ML 100 ML Bottle IV PRN (11:15)
[2017-05-04] MEDS ORDERED: Sodium Chloride 0.9% 10 ML Syringe FLUSH ONE (11:15)
--- NOTE | 2017-05-04 13:20 | CR ---
Chest 1V Frontal HISTORY: Hypoxia. COMPARISON: 07/28/2014 FINDINGS: Left Sided pacemaker. Limited inspiration. Moderate cardiomegaly. Moderate CHF and bilatera l lung base pleural effusions. Impression: Moderate CHF.
[2017-05-04] MEDS ORDERED: Furosemide 40 MG/4 ML VIAL IVPUSH ONE (14:00)
[2017-05-04] MEDS: Melatonin 3 MG Tab PO SCH (20:02)
[2017-05-05] MEDS: LORazepam 2 MG/ML SDV IV PRN (00:48)
[2017-05-05] MEDS: HYDROmorphone 0.5 MG/0.5 ML Syringe IVPUSH PRN ×6 (05:25→19:47)
[2017-05-05] MEDS: Albuterol/Ipratropium 3.0-0.5 MG/3 ML Neb Soln NEB SCH ×4 (06:59→20:20)
[2017-05-05] MEDS: Pantoprazole 40 MG Tab.CR PO SCH (07:32)
[2017-05-05] MEDS: Potassium Chloride 20 MEQ, Lidocaine 1% 2 ML in Sodium Chloride 0.9% 100 ML IV SCH ×2 (08:30→10:31)
[2017-05-05] MEDS: Aspirin 325 MG Tab.EC PO SCH (08:58)
[2017-05-05] MEDS: Bisacodyl 5 MG Tab PO SCH (08:59)
[2017-05-05] MEDS: Sennosides 8.6 MG Tab PO SCH ×2 (09:00→20:15)
[2017-05-05] MEDS: SCOPOLAMINE PATCH CHECK TOP SCH (09:01)
[2017-05-05] MEDS: Magnesium Hydroxide 400 MG/5 ML Susp 30 ML Cup PO SCH ×2 (09:01→20:20)
[2017-05-05] MEDS: Sodium Chloride 0.9% 10 ML Syringe FLUSH SCH (09:02)
--- NOTE | 2017-05-05 09:39 | PCM.PN ---
- General Info Date of Service: 05/05/17 Subjective Update: This patient has not changed substantially over the past 24 hours. Continues to have severe aphasia, no significant movement in the left upper extremity. Nursing staff has been able to give him medications and using applesauce but she seems to cough and choke with clear liquids. White blood cell count is elevated from yesterday but she has not had significant temperature elevation. Oxygenation improved with IV furosemide additional dose will be given this morning. Because of her aphasia she is unable to provide significant information concerning symptoms or review of systems. - Patient Data Vitals - Most Recent: Last Vital Signs Temp 99.5 F 05/05/17 08:00 Pulse 98 05/05/17 08:00 Resp 14 05/05/17 08:00 BP 167/45 H 05/05/17 08:00 Pulse Ox 90 L 05/05/17 08:00 Weight - Most Recent: 95 lb 7.362 oz I&O - Last 24 Hours: Intake & Output 05/04/17 05/05/17 05/05/17 22:59 06:59 14:59 Intake Total 1596 Output Total 3415 580 Balance -3415 1016 Lab Results Last 24 Hours: Laboratory Results - last 24 hr 05/02/17 05/04/17 05/05/17 Range/Units 10:30 14:00 05:00 WBC 12.9 H (4.5-11.0) K/uL RBC 3.05 L (3.30-5.50) M/uL Hgb 8.7 L 9.3 L (12.0-15.0) g/dL Hct 27.4 L (36.0-48.0) % MCV 90 (80-98) fL MCH 31 (27-31) pg MCHC 34 (32-36) % Plt Count 145 L (150-400) K/uL Neut % (Auto) 87 H (36-66) % Lymph % (Auto) 4 L (24-44) % [place] % (Auto) 10 H (2-6) % Eos % (Auto) 0 L (2-4) % Baso % (Auto) 0 (0-1) % Sodium (140-148) mmol/L Potassium (3.6-5.2) mmol/L Chloride (100-108) mmol/L Carbon Dioxide (21-32) mmol/L Anion Gap (5.0-14.0) mmol/L BUN (7-18) mg/dL Creatinine (0.6-1.0) mg/dL Est Cr Clr Drug Dosing mL/min Estimated GFR (MDRD) (>60) Glucose (74-106) mg/dL Calcium (8.5-10.1) mg/dL Magnesium (1.8-2.4) mg/dL Blood Type A NEGATIVE Gel Antibody Screen Negative Crossmatch See Detail 05/05/17 Range/Units 05:00 WBC (4.5-11.0) K/uL RBC (3.30-5.50) M/uL Hgb (12.0-15.0) g/dL Hct (36.0-48.0) % MCV (80-98) fL MCH (27-31) pg MCHC (32-36) % Plt Count (150-400) K/uL Neut % (Auto) (36-66) % Lymph % (Auto) (24-44) % [place] % (Auto) (2-6) % Eos % (Auto) (2-4) % Baso % (Auto) (0-1) % Sodium 143 (140-148) mmol/L Potassium 3.4 L (3.6-5.2) mmol/L Chloride 107 (100-108) mmol/L Carbon Dioxide 22 (21-32) mmol/L Anion Gap 17.4 H (5.0-14.0) mmol/L BUN 16 (7-18) mg/dL Creatinine 0.8 (0.6-1.0) mg/dL Est Cr Clr Drug Dosing 37.70 mL/min Estimated GFR (MDRD) > 60 (>60) Glucose 97 (74-106) mg/dL Calcium 8.3 L (8.5-10.1) mg/dL Magnesium 1.9 D (1.8-2.4) mg/dL Blood Type Gel Antibody Screen Crossmatch Med Orders - Current: Current Medications Acetaminophen (Tylenol) 650 mg PO Q4H PRN PRN Reason: Pain (Mild 1-3)/fever Al Hydroxide/Mg Hydroxide (Mag-Al Plus) 30 ml PO Q4H PRN PRN Reason: Constipation Albuterol (Proventil Neb Soln) 2.5 mg NEB Q4H PRN PRN Reason: Shortness Of Breath/wheezing Last Admin: 05/03/17 13:18 Dose: 2.5 mg Albuterol/Ipratropium (Duoneb 3.0-0.5 Mg/3 Ml) 3 ml NEB QIDRT [facility] Last Admin: 05/05/17 06:59 Dose: 3 ml Aspirin (Ecotrin) 325 mg PO DAILY [facility] Last Admin: 05/05/17 08:58 Dose: 325 mg Bisacodyl (Dulcolax) 10 mg PO DAILY [facility] Last Admin: 05/05/17 08:59 Dose: 10 mg Diazepam (Valium.) 5 mg PO Q6H PRN PRN Reason: Spasms Diphenhydramine HCl (Benadryl) 25 mg IVPUSH Q4H PRN PRN Reason: Itching Docusate Sodium (Colace) 100 mg PO BID PRN PRN Reason: Constipation Last Admin: 05/01/17 23:00 Dose: 100 mg Furosemide (Lasix) 40 mg IVPUSH ONETIME ONE Stop: 05/05/17 09:46 Hydromorphone HCl (Dilaudid) 0.5 - 1 mg IVPUSH Q2H PRN PRN Reason: Pain Last Admin: 05/05/17 07:25 Dose: 0.5 mg Potassium Chloride 20 meq/Lidocaine HCl 2 ml/ Sodium Chloride 112 mls @ 56 mls/ hr IV Q2H [facility] Stop: 05/05/17 12:59 Last Admin: 05/05/17 08:30 Dose: 56 mls/hr Sodium Chloride (Normal Saline) 1,000 mls @ 25 mls/hr IV ASDIRECTED [facility] Iopamidol (Isovue-300 (61%)) 100 ml IV . DIRECTED PRN PRN Reason: RADIOLOGY EXAM Stop: 05/05/17 11:16 Ketorolac Tromethamine (Toradol) 15 mg IVPUSH Q8H PRN PRN Reason: Pain Stop: 05/07/17 14:33 Last Admin: 05/04/17 05:29 Dose: 15 mg Lorazepam (Ativan) 0.5 - 1 mg IV Q6H PRN PRN Reason: Agitation Last Admin: 05/05/17 00:48 Dose: 0.5 mg Magnesium Hydroxide (Milk Of Magnesia) 30 ml PO BID [facility] Last Admin: 02/03/18 09:01 Dose: 30 ml Melatonin (Melatonin) 6 mg PO BEDTIME [facility] Last Admin: 05/04/17 20:02 Dose: Not Given Morphine Sulfate (Morphine) 2 mg IVPUSH Q2H PRN PRN Reason: Pain Last Admin: 05/03/17 21:03 Dose: 2 mg Scopolamine Patch (Check) 1 each TOP DAILY [facility] Last Admin: 05/05/17 09:01 Dose: Not Given Oxycodone HCl (Oxycodone) 5 - 10 mg PO Q4H PRN PRN Reason: Pain (moderate 4-6) Pantoprazole Sodium (Protonix) 40 mg PO ACBREAKFAST [facility] Last Admin: 05/05/17 07:32 Dose: 40 mg Scopolamine (Transderm-Scop) 1.5 mg TOP Q72H [facility] Stop: 05/05/17 10:00 Last Admin: 05/02/17 10:49 Dose: 1.5 mg Senna (Senna) 8.6 mg PO BID [facility] Last Admin: 05/05/17 09:00 Dose: 8.6 mg Sodium Chloride (Saline Flush) 10 ml FLUSH DAILY [facility] Last Admin: 05/05/17 09:02 Dose: 10 ml Tramadol HCl (Ultram) 100 mg PO Q6H PRN PRN Reason: Pain Discontinued Medications Bupivacaine HCl/Epinephrine Bitart (Marcaine 0.5%/Epinephrine 1:200,000) Confirm Administered Dose 50 ml .ROUTE .STK-MED ONE Stop: 05/02/17 07:49 Last Admin: 05/02/17 12:08 Dose: 20 ml Ropivacaine 49.25 ml/Ketorolac Tromethamine 30 mg/Epinephrine HCl 0.5 mg/ Clonidine HCl 80 mcg/ Sodium Chloride 48.45 ml 0 ml INJECT ONETIME ONE Stop: 05/02/17 11:01 Last Admin: 05/02/17 12:20 Dose: 100 ml Dexamethasone (Dexamethasone) Confirm Administered Dose 4 mg .ROUTE .STK-MED ONE Stop: 05/02/17 12:42 Fentanyl (Sublimaze) 25 mcg IVPUSH ONETIME ONE Stop: 05/01/17 19:50 Last Admin: 05/01/17 19:56 Dose: 25 mcg Fentanyl (Sublimaze) Confirm Administered Dose 100 mcg .ROUTE .STK-MED ONE Stop: 05/02/17 07:44 Flumazenil (Romazicon) Confirm Administered Dose 0.5 mg .ROUTE .STK-MED ONE Stop: 05/02/17 12:58 Furosemide (Lasix) 40 mg IVPUSH NOW ONE Stop: 05/04/17 14:01 Last Admin: 05/04/17 14:05 Dose: 40 mg Glycopyrrolate () Confirm Administered Dose 1 mg .ROUTE .STK-MED ONE Stop: 05/02/17 12:41 Hydromorphone HCl (Dilaudid) 0.5 mg IVPUSH ONETIME ONE Stop: 05/01/17 20:33 Last Admin: 05/01/17 20:43 Dose: 0.5 mg Sodium Chloride (Normal Saline) 1,000 mls @ 100 mls/hr IV ASDIRECTED [facility] Last Admin: 05/02/17 23:55 Dose: 100 mls/hr Cefazolin Sodium/Dextrose 2 gm (/ Premix) 50 mls @ 100 mls/hr IV ONCALL ONE Stop: 05/02/17 11:59 Last Admin: 05/02/17 10:50 Dose: 100 mls/hr Tranexamic Acid 450 mg/ Sodium (Chloride) 54.5 mls @ 218 mls/hr IV Q3H [facility] Stop: 05/02/17 14:44 Last Admin: 05/02/17 12:20 Dose: 218 mls/hr Tranexamic Acid 450 mg/ Sodium (Chloride) 54.5 mls @ 218 mls/hr IV Q3H [facility] Stop: 05/02/17 14:14 Last Admin: 05/02/17 13:22 Dose: 218 mls/hr Acetaminophen 1,000 mg/ Premix 100 mls @ 400 mls/hr IV NOW ONE Stop: 05/02/17 16:14 Last Admin: 05/02/17 15:26 Dose: 400 mls/hr Cefazolin Sodium/Dextrose 1 gm (/ Premix) 50 mls @ 100 mls/hr IV Q8H [facility] Stop: 05/03/17 12:29 Last Admin: 05/03/17 11:44 Dose: 100 mls/hr Potassium Chloride/Dextrose/Sod Cl (D5 1/2 Ns W/ 20 Meq/L Kcl) 1,000 mls @ 75 mls/hr IV ASDIRECTED [facility] Last Infusion: 05/04/17 03:52 Dose: 0 mls/hr Sodium Chloride (Normal Saline) 500 mls @ 500 mls/hr IV ASDIRECTED [facility] Stop: 05/03/17 17:46 Last Admin: 05/03/17 16:58 Dose: 500 mls/hr Sodium Chloride (Normal Saline) 1,000 mls @ 250 mls/hr IV ASDIRECTED [facility] Stop: 05/04/17 08:00 Last Admin: 05/04/17 03:54 Dose: 250 mls/hr Sodium Chloride (Normal Saline) 1,000 mls @ 50 mls/hr IV ASDIRECTED [facility] Ketamine HCl (Ketalar) 23 mg IV ASDIRECTED [facility] Stop: 05/02/17 14:00 Midazolam HCl (Versed 1 Mg/Ml) Confirm Administered Dose 2 mg .ROUTE .STK-MED ONE Stop: 05/02/17 07:44 Naloxone HCl (Narcan) Confirm Administered Dose 0.4 mg .ROUTE .STK-MED ONE Stop: 05/02/17 12:58 Neostigmine Methylsulfate (Neostigmine) Confirm Administered Dose 5 mg .ROUTE .STK-MED ONE Stop: 05/02/17 12:41 Ondansetron HCl (Zofran) Confirm Administered Dose 4 mg .ROUTE .STK-MED ONE Stop: 05/02/17 12:42 Oxycodone HCl (Oxycodone) 5 mg PO Q4H PRN PRN Reason: Pain (moderate 4-6) Last Admin: 05/02/17 09:18 Dose: 5 mg Oxycodone/Acetaminophen (Percocet 325-5 Mg) 2 tab PO Q4H PRN PRN Reason: Pain Pantoprazole Sodium (Protonix Iv) 40 mg IVPUSH DAILY [facility] Last Admin: 05/01/17 23:00 Dose: 40 mg Pantoprazole Sodium (Protonix Iv) 40 mg IVPUSH DAILY@1130 [facility] Povidone Iodine (Betadine 10% Soln) Confirm Administered Dose 1 ml .ROUTE .STK- MED ONE Stop: 05/02/17 07:49 Propofol (Diprivan 20 Ml) Confirm Administered Dose 200 mg .ROUTE .STK-MED ONE Stop: 05/02/17 07:44 Sodium Chloride (Saline Flush) 10 ml FLUSH ONETIME ONE Stop: 05/04/17 11:16 Last Admin: 05/04/17 11:59 Dose: 10 ml Zolpidem Tartrate (Ambien) 5 mg PO BEDTIME PRN PRN Reason: Sleep - Exam Quality Assessment: Supplemental Oxygen, Urine Catheter, DVT Prophylaxis Lungs: Normal Respiratory Effort, Rales. No: Rhonchi, Rub, Stridor, Wheezing Cardiovascular: Regular Rate, Regular Rhythm, No Murmurs GI/Abdominal Exam: Soft, Non-Tender, No Organomegaly, No Distention Extremities: Non-Tender, No Pedal Edema Skin: Warm, Dry - Problem List Review Problem List Initiated/Reviewed/Updated: Yes - My Orders Last 24 Hours: My Active Orders 05/04/17 11:15 Iopamidol [Isovue-300 (61%)] 100 ml IV . DIRECTED PRN 05/05/17 09:00 Potassium Chloride 20 meq Lidocaine 1% [Xylocaine 1%] 2 ml Sodium Chloride 0.9 % [Normal Saline] 100 ml IV Q2H 05/05/17 09:28 Furosemide [Lasix] 40 mg IVPUSH NOW ONE 05/05/17 09:30 Chest 1V Frontal [CR] Urgent UA W/MICROSCOPIC [URIN] Stat 05/05/17 09:45 Sodium Chloride 0.9% [Normal Saline] 1,000 ml IV ASDIRECTED 05/05/17 Breakfast Pureed Diet [DIET] 05/06/17 05:00 BASIC METABOLIC PANEL,BMP [CHEM] Timed CBC WITH AUTO DIFF [HEME] Timed MAGNESIUM [CHEM] Timed - Plan Plan:: Assessment and Plan - Right Intertrochanteric fracture of right hip - surgical intervention completed 3 days ago with IM nailing. Pain is been well-controlled. Given multiple comorbidities her recovery process will be difficult and I fear that her morbidity and mortality may be on the high side given all of her problems including COPD. -Pain control -Surgical follow-up per orthopedic team -IV hydration; Normal Saline at 100ml/hr -Physical therapy Acute blood loss anemia-secondary to recent hip fracture and surgery, hemoglobin improved and is stable following transfusion of one unit of red blood cells -Repeat hemoglobin level in a.m. Expressive aphasia associated with left arm weakness- secondary to acute CVA. Discussed yesterday with family they did not want to proceed with further imaging as they did not feel that it would significantly change current management or care. We did review her advanced directive which clearly states that she wants to be DNR/DNI and no consideration of a feeding tube. She continues to have some difficulty with swallowing raising the possibility of possible aspiration. -Pured diet, nectar thickened liquids -Speech pathology consultation -Avoid extremes of hypertension or hypotension -Daily aspirin Congestive heart failure with fluid overload-evidence of pulmonary edema on chest x-ray yesterday with increased hypoxia and requirement of supplemental oxygen -Improved with IV diuretic therapy yesterday -Furosemide 40 mg IV today Leukocytosis-relatively mild, but does raise possibility of underlying infection. She has not had significant temperature elevation thus far Coronary artery disease - Pacemaker, PVD, HTN, CHF, CABG 2007 -continue medical management -telemetry COPD - supplemental oxygen requirements have increased over the past 24 hours -Repeat chest x-ray today -Scheduled and as needed nebulizers -pulse ox -albuterol nebs prn Palliative care-patient's advance directive reviewed and clearly states she does not want intubation, mechanical ventilation, CPR, or a feeding tube. Maintenance issues - - DVT prophylaxis - mechanical, SCD - GI prophylaxis - PPI - Nutrition - clear liquids - Serna catheter - placed in ER, will remain in place for strict intake and output monitoring postoperatively Disposition - anticipate discharge to the [facility] after the hospital stay
[2017-05-05] MEDS ORDERED: Furosemide 40 MG/4 ML VIAL IVPUSH ONE (09:45)
[2017-05-05] MEDS ORDERED: Sodium Chloride 0.9% 1,000 ML IV SCH (09:45)
[2017-05-05] MEDS: oxyCODONE 5 MG Tab PO PRN ×2 (15:39→21:03)
[2017-05-05] MEDS: Ampicillin/Sulbactam Na 1.5 GM in Sodium Chloride 0.9% 50 ML IV SCH (19:50)
[2017-05-05] MEDS: Melatonin 3 MG Tab PO SCH (20:14)
[2017-05-06] MEDS: Ampicillin/Sulbactam Na 1.5 GM in Sodium Chloride 0.9% 50 ML IV SCH ×4 (01:55→13:42)
[2017-05-06] MEDS: oxyCODONE 5 MG Tab PO PRN ×2 (02:08→12:11)
[2017-05-06] MEDS: Morphine 2 MG/ML Syringe IVPUSH PRN ×2 (03:11→23:43)
[2017-05-06] MEDS: LORazepam 2 MG/ML SDV IV PRN ×2 (03:44→17:46)
[2017-05-06] MEDS: Albuterol/Ipratropium 3.0-0.5 MG/3 ML Neb Soln NEB SCH ×4 (07:20→21:47)
[2017-05-06] MEDS: Pantoprazole 40 MG Tab.CR PO SCH (07:44)
[2017-05-06] MEDS: HYDROmorphone 0.5 MG/0.5 ML Syringe IVPUSH PRN ×2 (07:55→16:55)
[2017-05-06] MEDS: Sodium Chloride 0.9% 10 ML Syringe FLUSH SCH (08:40)
[2017-05-06] MEDS: Bisacodyl 5 MG Tab PO SCH (08:40)
[2017-05-06] MEDS: Magnesium Hydroxide 400 MG/5 ML Susp 30 ML Cup PO SCH (08:40)
[2017-05-06] MEDS: Sennosides 8.6 MG Tab PO SCH (08:40)
[2017-05-06] MEDS: Aspirin 325 MG Tab.EC PO SCH (08:40)
--- NOTE | 2017-05-06 08:56 | PCM.PN ---
- General Info Date of Service: 05/06/17 Subjective Update: This patient has been essentially unchanged over the past 24 hours, continues to have a severe expressive aphasia with weakness of the left face and left upper extremity. She is unable to communicate because of the aphasia with no ability to answer specific questions or provide information concerning review of systems. Functional Status: Reports: Pain Controlled, Urinating. Denies: Tolerating Diet - Patient Data Vitals - Most Recent: Last Vital Signs Temp 98.9 F 05/06/17 08:00 Pulse 89 05/06/17 08:00 Resp 19 05/06/17 08:00 BP 176/83 H 05/06/17 08:00 Pulse Ox 92 L 05/06/17 08:00 Weight - Most Recent: 95 lb 7.362 oz I&O - Last 24 Hours: Intake & Output 05/05/17 05/06/17 05/06/17 22:59 06:59 14:59 Intake Total 519 325 Output Total 350 Balance 169 325 Lab Results Last 24 Hours: Laboratory Results - last 24 hr 05/05/17 05/06/17 05/06/17 Range/Units 10:05 05:44 05:44 WBC 11.3 H (4.5-11.0) K/uL RBC 3.14 L (3.30-5.50) M/uL Hgb 9.5 L (12.0-15.0) g/dL Hct 28.6 L (36.0-48.0) % MCV 91 (80-98) fL MCH 30 (27-31) pg MCHC 33 (32-36) % Plt Count 175 (150-400) K/uL Neut % (Auto) 85 H (36-66) % Lymph % (Auto) 4 L (24-44) % [place] % (Auto) 11 H (2-6) % Eos % (Auto) 0 L (2-4) % Baso % (Auto) 0 (0-1) % Sodium 145 (140-148) mmol/L Potassium 4.9 (3.6-5.2) mmol/L Chloride 108 (100-108) mmol/L Carbon Dioxide 31 (21-32) mmol/L Anion Gap 10.9 (5.0-14.0) mmol/L BUN 20 H (7-18) mg/dL Creatinine 0.9 (0.6-1.0) mg/dL Est Cr Clr Drug Dosing 33.51 mL/min Estimated GFR (MDRD) > 60 (>60) Glucose 109 H (74-106) mg/dL Calcium 8.2 L (8.5-10.1) mg/dL Magnesium 2.3 (1.8-2.4) mg/dL Urine Color Yellow Urine Appearance Slightly cloudy Urine pH 6.0 (4.5-8.0) Ur Specific [place] 1.010 (1.008-1.030) Urine Protein Negative (NEGATIVE) mg/dL Urine Glucose (UA) Normal (NEGATIVE) mg/dL Urine Ketones 50 H (NEGATIVE) mg/dL Urine Occult Blood Large (NEGATIVE) Urine Nitrite Negative (NEGATIVE) Urine Bilirubin Negative (NEGATIVE) Urine Urobilinogen Normal (NORMAL) mg/dL Ur Leukocyte Esterase Negative (NEGATIVE) Urine RBC 0-5 (0-5) Urine WBC 0-5 (0-5) Ur Epithelial Cells Not seen Amorphous Sediment Rare Urine Bacteria Not seen Urine Mucus Not seen Med Orders - Current: Current Medications Acetaminophen (Tylenol) 650 mg PO Q4H PRN PRN Reason: Pain (Mild 1-3)/fever Al Hydroxide/Mg Hydroxide (Mag-Al Plus) 30 ml PO Q4H PRN PRN Reason: Constipation Albuterol (Proventil Neb Soln) 2.5 mg NEB Q4H PRN PRN Reason: Shortness Of Breath/wheezing Last Admin: 05/03/17 13:18 Dose: 2.5 mg Albuterol/Ipratropium (Duoneb 3.0-0.5 Mg/3 Ml) 3 ml NEB QIDRT [facility] Last Admin: 05/06/17 07:20 Dose: 3 ml Aspirin (Ecotrin) 325 mg PO DAILY [facility] Last Admin: 05/06/17 08:40 Dose: 325 mg Bisacodyl (Dulcolax) 10 mg PO DAILY [facility] Last Admin: 05/06/17 08:40 Dose: 10 mg Diazepam (Valium.) 5 mg PO Q6H PRN PRN Reason: Spasms Diphenhydramine HCl (Benadryl) 25 mg IVPUSH Q4H PRN PRN Reason: Itching Docusate Sodium (Colace) 100 mg PO BID PRN PRN Reason: Constipation Last Admin: 05/01/17 23:00 Dose: 100 mg Hydromorphone HCl (Dilaudid) 0.5 - 1 mg IVPUSH Q2H PRN PRN Reason: Pain Last Admin: 05/06/17 07:55 Dose: 0.5 mg Ampicillin Sodium/Sulbactam (Sodium 1.5 gm/ Sodium Chloride) 50 mls @ 100 mls/ hr IV Q6H [facility] Last Admin: 05/06/17 07:44 Dose: 100 mls/hr Ketorolac Tromethamine (Toradol) 15 mg IVPUSH Q8H PRN PRN Reason: Pain Stop: 05/07/17 14:33 Last Admin: 05/04/17 05:29 Dose: 15 mg Lorazepam (Ativan) 0.5 - 1 mg IV Q6H PRN PRN Reason: Agitation Last Admin: 05/06/17 03:44 Dose: 0.5 mg Magnesium Hydroxide (Milk Of Magnesia) 30 ml PO BID [facility] Last Admin: 05/06/17 08:40 Dose: 30 ml Melatonin (Melatonin) 6 mg PO BEDTIME [facility] Last Admin: 05/05/17 20:14 Dose: 6 mg Morphine Sulfate (Morphine) 2 mg IVPUSH Q2H PRN PRN Reason: Pain Last Admin: 05/06/17 03:11 Dose: 2 mg Scopolamine Patch (Check) 1 each TOP DAILY [facility] Last Admin: 05/05/17 09:01 Dose: Not Given Oxycodone HCl (Oxycodone) 5 - 10 mg PO Q4H PRN PRN Reason: Pain (moderate 4-6) Last Admin: 05/06/17 02:08 Dose: 5 mg Pantoprazole Sodium (Protonix) 40 mg PO ACBREAKFAST [facility] Last Admin: 05/06/17 07:44 Dose: 40 mg Senna (Senna) 8.6 mg PO BID [facility] Last Admin: 05/06/17 08:40 Dose: 8.6 mg Sodium Chloride (Saline Flush) 10 ml FLUSH DAILY [facility] Last Admin: 05/06/17 08:40 Dose: 10 ml Tramadol HCl (Ultram) 100 mg PO Q6H PRN PRN Reason: Pain Discontinued Medications Bupivacaine HCl/Epinephrine Bitart (Marcaine 0.5%/Epinephrine 1:200,000) Confirm Administered Dose 50 ml .ROUTE .[facility]-MED ONE Stop: 05/02/17 07:49 Last Admin: 05/02/17 12:08 Dose: 20 ml Ropivacaine 49.25 ml/Ketorolac Tromethamine 30 mg/Epinephrine HCl 0.5 mg/ Clonidine HCl 80 mcg/ Sodium Chloride 48.45 ml 0 ml INJECT ONETIME ONE Stop: 05/02/17 11:01 Last Admin: 05/02/17 12:20 Dose: 100 ml Dexamethasone (Dexamethasone) Confirm Administered Dose 4 mg .ROUTE .STK-MED ONE Stop: 05/02/17 12:42 Fentanyl (Sublimaze) 25 mcg IVPUSH ONETIME ONE Stop: 05/01/17 19:50 Last Admin: 05/01/17 19:56 Dose: 25 mcg Fentanyl (Sublimaze) Confirm Administered Dose 100 mcg .ROUTE .[facility]-MED ONE Stop: 05/02/17 07:44 Flumazenil (Romazicon) Confirm Administered Dose 0.5 mg .ROUTE .STK-MED ONE Stop: 05/02/17 12:58 Furosemide (Lasix) 40 mg IVPUSH NOW ONE Stop: 05/04/17 14:01 Last Admin: 05/04/17 14:05 Dose: 40 mg Furosemide (Lasix) 40 mg IVPUSH ONETIME ONE Stop: 05/05/17 09:46 Last Admin: 05/05/17 09:49 Dose: 40 mg Glycopyrrolate () Confirm Administered Dose 1 mg .ROUTE .STK-MED ONE Stop: 05/02/17 12:41 Hydromorphone HCl (Dilaudid) 0.5 mg IVPUSH ONETIME ONE Stop: 05/01/17 20:33 Last Admin: 05/01/17 20:43 Dose: 0.5 mg Sodium Chloride (Normal Saline) 1,000 mls @ 100 mls/hr IV ASDIRECTED [facility] Last Admin: 05/02/17 23:55 Dose: 100 mls/hr Cefazolin Sodium/Dextrose 2 gm (/ Premix) 50 mls @ 100 mls/hr IV ONCALL ONE Stop: 05/02/17 11:59 Last Admin: 05/02/17 10:50 Dose: 100 mls/hr Tranexamic Acid 450 mg/ Sodium (Chloride) 54.5 mls @ 218 mls/hr IV Q3H [facility] Stop: 05/02/17 14:44 Last Admin: 05/02/17 12:20 Dose: 218 mls/hr Tranexamic Acid 450 mg/ Sodium (Chloride) 54.5 mls @ 218 mls/hr IV Q3H [facility] Stop: 05/02/17 14:14 Last Admin: 05/02/17 13:22 Dose: 218 mls/hr Acetaminophen 1,000 mg/ Premix 100 mls @ 400 mls/hr IV NOW ONE Stop: 05/02/17 16:14 Last Admin: 05/02/17 15:26 Dose: 400 mls/hr Cefazolin Sodium/Dextrose 1 gm (/ Premix) 50 mls @ 100 mls/hr IV Q8H [facility] Stop: 05/03/17 12:29 Last Admin: 05/03/17 11:44 Dose: 100 mls/hr Potassium Chloride/Dextrose/Sod Cl (D5 1/2 Ns W/ 20 Meq/L Kcl) 1,000 mls @ 75 mls/hr IV ASDIRECTED [facility] Last Infusion: 05/04/17 03:52 Dose: 0 mls/hr Sodium Chloride (Normal Saline) 500 mls @ 500 mls/hr IV ASDIRECTED [facility] Stop: 05/03/17 17:46 Last Admin: 05/03/17 16:58 Dose: 500 mls/hr Sodium Chloride (Normal Saline) 1,000 mls @ 250 mls/hr IV ASDIRECTED [facility] Stop: 05/04/17 08:00 Last Admin: 05/04/17 03:54 Dose: 250 mls/hr Sodium Chloride (Normal Saline) 1,000 mls @ 50 mls/hr IV ASDIRECTED [facility] Potassium Chloride 20 meq/Lidocaine HCl 2 ml/ Sodium Chloride 112 mls @ 56 mls/ hr IV Q2H [facility] Stop: 05/05/17 12:59 Last Admin: 05/05/17 10:31 Dose: 56 mls/hr Sodium Chloride (Normal Saline) 1,000 mls @ 25 mls/hr IV ASDIRECTED [facility] Last Admin: 05/05/17 15:12 Dose: 25 mls/hr Ampicillin Sodium/Sulbactam (Sodium 1.5 gm/ Sodium Chloride) 50 mls @ 100 mls/ hr IV Q6H [facility] Last Admin: 05/06/17 07:39 Dose: Not Given Iopamidol (Isovue-300 (61%)) 100 ml IV . DIRECTED PRN PRN Reason: RADIOLOGY EXAM Stop: 05/05/17 11:16 Ketamine HCl (Ketalar) 23 mg IV ASDIRECTED [facility] Stop: 05/02/17 14:00 Midazolam HCl (Versed 1 Mg/Ml) Confirm Administered Dose 2 mg .ROUTE .STK-MED ONE Stop: 05/02/17 07:44 Naloxone HCl (Narcan) Confirm Administered Dose 0.4 mg .ROUTE .STK-MED ONE Stop: 05/02/17 12:58 Neostigmine Methylsulfate (Neostigmine) Confirm Administered Dose 5 mg .ROUTE .STK-MED ONE Stop: 05/02/17 12:41 Ondansetron HCl (Zofran) Confirm Administered Dose 4 mg .ROUTE .STK-MED ONE Stop: 05/02/17 12:42 Oxycodone HCl (Oxycodone) 5 mg PO Q4H PRN PRN Reason: Pain (moderate 4-6) Last Admin: 05/02/17 09:18 Dose: 5 mg Oxycodone/Acetaminophen (Percocet 325-5 Mg) 2 tab PO Q4H PRN PRN Reason: Pain Pantoprazole Sodium (Protonix Iv) 40 mg IVPUSH DAILY [facility] Last Admin: 05/01/17 23:00 Dose: 40 mg Pantoprazole Sodium (Protonix Iv) 40 mg IVPUSH DAILY@1130 [facility] Povidone Iodine (Betadine 10% Soln) Confirm Administered Dose 1 ml .ROUTE .STK- MED ONE Stop: 05/02/17 07:49 Propofol (Diprivan 20 Ml) Confirm Administered Dose 200 mg .ROUTE .STK-MED ONE Stop: 05/02/17 07:44 Scopolamine (Transderm-Scop) 1.5 mg TOP Q72H [facility] Stop: 05/05/17 10:00 Last Admin: 05/02/17 10:49 Dose: 1.5 mg Sodium Chloride (Saline Flush) 10 ml FLUSH ONETIME ONE Stop: 05/04/17 11:16 Last Admin: 05/04/17 11:59 Dose: 10 ml Zolpidem Tartrate (Ambien) 5 mg PO BEDTIME PRN PRN Reason: Sleep - Exam Quality Assessment: DVT Prophylaxis General: Alert, Cooperative, Mild Distress Lungs: Clear to Auscultation, Normal Respiratory Effort Cardiovascular: Regular Rate, Regular Rhythm, No Murmurs GI/Abdominal Exam: Soft, Non-Tender, No Organomegaly, No Distention Extremities: Non-Tender, No Pedal Edema Skin: Warm, Dry - Problem List Review Problem List Initiated/Reviewed/Updated: Yes - My Orders Last 24 Hours: My Active Orders 05/05/17 09:30 Chest 1V Frontal [CR] Urgent 05/05/17 Breakfast Pureed Diet [DIET] 05/06/17 08:00 Ampicillin/Sulbactam Na [Unasyn] 1.5 gm Sodium Chloride 0.9% [Normal Saline] 50 ml IV Q6H 05/06/17 08:50 Discontinue Telemetry Monitoring [Cardiac Monitoring Discontinue] [RC] Click to Edit - Plan Plan:: Assessment and Plan - Right Intertrochanteric fracture of right hip - surgical intervention completed 4 days ago with IM nailing. Given multiple comorbidities her recovery process will be difficult and I fear that her morbidity and mortality may be on the high side given all of her problems including COPD, as well as recent CVA. -Pain control -Surgical follow-up per orthopedic team -Physical therapy Acute blood loss anemia-secondary to recent hip fracture and surgery, hemoglobin improved and is stable following transfusion of one unit of red blood cells Expressive aphasia associated with left arm weakness- secondary to acute CVA. Discussed yesterday with family they did not want to proceed with further imaging as they did not feel that it would significantly change current management or care. We did review her advanced directive which clearly states that she wants to be DNR/DNI and no consideration of a feeding tube. She continues to have some difficulty with swallowing raising the possibility of possible aspiration. -Pured diet, nectar thickened liquids -Speech pathology consultation -Avoid extremes of hypertension or hypotension -Daily aspirin Congestive heart failure with fluid significantly improved following diuresis -Continue to monitor closely and use diuretic therapy as needed Leukocytosis-relatively mild, but does raise possibility of underlying infection. She has not had significant temperature elevation thus far Coronary artery disease - Pacemaker, PVD, HTN, CHF, CABG 2007 -continue medical management -telemetry COPD - supplemental oxygen requirements have increased over the past 24 hours -Repeat chest x-ray today -Scheduled and as needed nebulizers -pulse ox -albuterol nebs prn Palliative care-patient's advance directive reviewed and clearly states she does not want intubation, mechanical ventilation, CPR, or a feeding tube. Maintenance issues - - DVT prophylaxis - mechanical, SCD - GI prophylaxis - PPI - Nutrition - clear liquids - Serna catheter - placed in ER, will remain in place for strict intake and output monitoring postoperatively Disposition [facility]
[2017-05-06] MEDS: SCOPOLAMINE PATCH CHECK TOP SCH (09:12)
[2017-05-06 19:53] VITALS: BP 118/58
[2017-05-07] MEDS: Morphine 2 MG/ML Syringe IVPUSH PRN ×2 (04:05→07:50)
[2017-05-07] MEDS: LORazepam 2 MG/ML SDV IV PRN (04:31)
[2017-05-07] MEDS: Albuterol/Ipratropium 3.0-0.5 MG/3 ML Neb Soln NEB SCH ×2 (07:15→11:03)
[2017-05-07] MEDS: LORazepam ORAL Concentrate 1MG/0.5ML U/D PO PRN ×2 (09:22→13:00)
[2017-05-07] MEDS: Sodium Chloride 0.9% 10 ML Syringe FLUSH SCH (09:23)
[2017-05-07] MEDS: Bisacodyl 5 MG Tab PO SCH (09:25)
[2017-05-07] MEDS: Morphine 10 MG/0.5 ML Oral Syringe SL PRN ×2 (10:02→12:43)
--- NOTE | 2017-05-07 10:03 | PCM.PN ---
- General Info Date of Service: 05/07/17 Subjective Update: Ms. Echavarria was changed to comfort cares only status yesterday by family, they feel that this is consistent with her previously expressed wishes. She appears to be comfortable with current management including use of morphine and lorazepam. Because of her expressive aphasia is unable to provide significant information concerning symptoms or review of systems. - Patient Data Vitals - Most Recent: Last Vital Signs Temp 98.8 F 05/07/17 07:52 Pulse 40 L 05/07/17 07:52 Resp 20 05/07/17 07:52 BP 118/58 L 05/06/17 19:48 Pulse Ox 80 L 05/07/17 07:52 Weight - Most Recent: 95 lb 7.362 oz I&O - Last 24 Hours: Intake & Output 05/06/17 05/07/17 05/07/17 22:59 06:59 14:59 Intake Total 0 Output Total 550 Balance -550 Med Orders - Current: Current Medications Acetaminophen (Tylenol) 650 mg PO Q4H PRN PRN Reason: Pain (Mild 1-3)/fever Al Hydroxide/Mg Hydroxide (Mag-Al Plus) 30 ml PO Q4H PRN PRN Reason: Constipation Albuterol (Proventil Neb Soln) 2.5 mg NEB Q4H PRN PRN Reason: Shortness Of Breath/wheezing Last Admin: 05/03/17 13:18 Dose: 2.5 mg Albuterol/Ipratropium (Duoneb 3.0-0.5 Mg/3 Ml) 3 ml NEB QIDRT [facility] Last Admin: 05/07/17 07:15 Dose: 3 ml Bisacodyl (Dulcolax) 10 mg PO DAILY [facility] Last Admin: 05/07/17 09:25 Dose: 10 mg Ketorolac Tromethamine (Toradol) 15 mg IVPUSH Q8H PRN PRN Reason: Pain Stop: 05/07/17 14:33 Last Admin: 05/04/17 05:29 Dose: 15 mg Lorazepam (Ativan Oral Concentrate 1mg/0.5 Ml U/D) 0.5 mg PO Q2H PRN PRN Reason: Anxiety Last Admin: 05/07/17 09:22 Dose: 0.5 mg Morphine Sulfate (Morphine 10 Mg/0.5 Ml Oral Syringe) 5 mg SL Q1H PRN PRN Reason: Pain Sodium Chloride (Saline Flush) 10 ml FLUSH DAILY [facility] Last Admin: 05/07/17 09:23 Dose: 10 ml Discontinued Medications Aspirin (Ecotrin) 325 mg PO DAILY [facility] Last Admin: 05/06/17 08:40 Dose: 325 mg Bupivacaine HCl/Epinephrine Bitart (Marcaine 0.5%/Epinephrine 1:200,000) Confirm Administered Dose 50 ml .ROUTE .STK-MED ONE Stop: 05/02/17 07:49 Last Admin: 05/02/17 12:08 Dose: 20 ml Ropivacaine 49.25 ml/Ketorolac Tromethamine 30 mg/Epinephrine HCl 0.5 mg/ Clonidine HCl 80 mcg/ Sodium Chloride 48.45 ml 0 ml INJECT ONETIME ONE Stop: 05/02/17 11:01 Last Admin: 05/02/17 12:20 Dose: 100 ml Dexamethasone (Dexamethasone) Confirm Administered Dose 4 mg .ROUTE .STK-MED ONE Stop: 05/02/17 12:42 Diazepam (Valium.) 5 mg PO Q6H PRN PRN Reason: Spasms Diphenhydramine HCl (Benadryl) 25 mg IVPUSH Q4H PRN PRN Reason: Itching Docusate Sodium (Colace) 100 mg PO BID PRN PRN Reason: Constipation Last Admin: 05/01/17 23:00 Dose: 100 mg Fentanyl (Sublimaze) 25 mcg IVPUSH ONETIME ONE Stop: 05/01/17 19:50 Last Admin: 05/01/17 19:56 Dose: 25 mcg Fentanyl (Sublimaze) Confirm Administered Dose 100 mcg .ROUTE .ST[facility]-MED ONE Stop: 05/02/17 07:44 Flumazenil (Romazicon) Confirm Administered Dose 0.5 mg .ROUTE .[facility]-MED ONE Stop: 05/02/17 12:58 Furosemide (Lasix) 40 mg IVPUSH NOW ONE Stop: 05/04/17 14:01 Last Admin: 05/04/17 14:05 Dose: 40 mg Furosemide (Lasix) 40 mg IVPUSH ONETIME ONE Stop: 05/05/17 09:46 Last Admin: 05/05/17 09:49 Dose: 40 mg Glycopyrrolate () Confirm Administered Dose 1 mg .ROUTE .STK-MED ONE Stop: 05/02/17 12:41 Hydromorphone HCl (Dilaudid) 0.5 mg IVPUSH ONETIME ONE Stop: 05/01/17 20:33 Last Admin: 05/01/17 20:43 Dose: 0.5 mg Hydromorphone HCl (Dilaudid) 0.5 - 1 mg IVPUSH Q2H PRN PRN Reason: Pain Last Admin: 05/06/17 16:55 Dose: 0.5 mg Sodium Chloride (Normal Saline) 1,000 mls @ 100 mls/hr IV ASDIRECTED [facility] Last Admin: 05/02/17 23:55 Dose: 100 mls/hr Cefazolin Sodium/Dextrose 2 gm (/ Premix) 50 mls @ 100 mls/hr IV ONCALL ONE Stop: 05/02/17 11:59 Last Admin: 05/02/17 10:50 Dose: 100 mls/hr Tranexamic Acid 450 mg/ Sodium (Chloride) 54.5 mls @ 218 mls/hr IV Q3H [facility] Stop: 05/02/17 14:44 Last Admin: 05/02/17 12:20 Dose: 218 mls/hr Tranexamic Acid 450 mg/ Sodium (Chloride) 54.5 mls @ 218 mls/hr IV Q3H [facility] Stop: 05/02/17 14:14 Last Admin: 05/02/17 13:22 Dose: 218 mls/hr Acetaminophen 1,000 mg/ Premix 100 mls @ 400 mls/hr IV NOW ONE Stop: 05/02/17 16:14 Last Admin: 05/02/17 15:26 Dose: 400 mls/hr Cefazolin Sodium/Dextrose 1 gm (/ Premix) 50 mls @ 100 mls/hr IV Q8H [facility] Stop: 05/03/17 12:29 Last Admin: 05/03/17 11:44 Dose: 100 mls/hr Potassium Chloride/Dextrose/Sod Cl (D5 1/2 Ns W/ 20 Meq/L Kcl) 1,000 mls @ 75 mls/hr IV ASDIRECTED [facility] Last Infusion: 05/04/17 03:52 Dose: 0 mls/hr Sodium Chloride (Normal Saline) 500 mls @ 500 mls/hr IV ASDIRECTED [facility] Stop: 05/03/17 17:46 Last Admin: 05/03/17 16:58 Dose: 500 mls/hr Sodium Chloride (Normal Saline) 1,000 mls @ 250 mls/hr IV ASDIRECTED [facility] Stop: 05/04/17 08:00 Last Admin: 05/04/17 03:54 Dose: 250 mls/hr Sodium Chloride (Normal Saline) 1,000 mls @ 50 mls/hr IV ASDIRECTED [facility] Potassium Chloride 20 meq/Lidocaine HCl 2 ml/ Sodium Chloride 112 mls @ 56 mls/ hr IV Q2H [facility] Stop: 05/05/17 12:59 Last Admin: 05/05/17 10:31 Dose: 56 mls/hr Sodium Chloride (Normal Saline) 1,000 mls @ 25 mls/hr IV ASDIRECTED [facility] Last Infusion: 05/06/17 10:05 Dose: 0 mls/hr Ampicillin Sodium/Sulbactam (Sodium 1.5 gm/ Sodium Chloride) 50 mls @ 100 mls/ hr IV Q6H [facility] Last Admin: 05/06/17 07:39 Dose: Not Given Ampicillin Sodium/Sulbactam (Sodium 1.5 gm/ Sodium Chloride) 50 mls @ 100 mls/ hr IV Q6H [facility] Last Admin: 05/06/17 13:42 Dose: 100 mls/hr Iopamidol (Isovue-300 (61%)) 100 ml IV . DIRECTED PRN PRN Reason: RADIOLOGY EXAM Stop: 05/05/17 11:16 Ketamine HCl (Ketalar) 23 mg IV ASDIRECTED [facility] Stop: 05/02/17 14:00 Lorazepam (Ativan) 0.5 - 1 mg IV Q6H PRN PRN Reason: Agitation Last Admin: 05/07/17 04:31 Dose: 1 mg Magnesium Hydroxide (Milk Of Magnesia) 30 ml PO BID [facility] Last Admin: 05/06/17 08:40 Dose: 30 ml Melatonin (Melatonin) 6 mg PO BEDTIME [facility] Last Admin: 05/05/17 20:14 Dose: 6 mg Midazolam HCl (Versed 1 Mg/Ml) Confirm Administered Dose 2 mg .ROUTE .STK-MED ONE Stop: 05/02/17 07:44 Morphine Sulfate (Morphine) 2 mg IVPUSH Q2H PRN PRN Reason: Pain Last Admin: 05/07/17 07:50 Dose: 2 mg Naloxone HCl (Narcan) Confirm Administered Dose 0.4 mg .ROUTE .STK-MED ONE Stop: 05/02/17 12:58 Neostigmine Methylsulfate (Neostigmine) Confirm Administered Dose 5 mg .ROUTE .[facility] ONE Stop: 05/02/17 12:41 Scopolamine Patch (Check) 1 each TOP DAILY [facility] Last Admin: 05/06/17 09:12 Dose: Not Given Ondansetron HCl (Zofran) Confirm Administered Dose 4 mg .ROUTE .[facility] ONE Stop: 05/02/17 12:42 Oxycodone HCl (Oxycodone) 5 mg PO Q4H PRN PRN Reason: Pain (moderate 4-6) Last Admin: 05/02/17 09:18 Dose: 5 mg Oxycodone HCl (Oxycodone) 5 - 10 mg PO Q4H PRN PRN Reason: Pain (moderate 4-6) Last Admin: 05/06/17 12:11 Dose: 5 mg Oxycodone/Acetaminophen (Percocet 325-5 Mg) 2 tab PO Q4H PRN PRN Reason: Pain Pantoprazole Sodium (Protonix Iv) 40 mg IVPUSH DAILY [facility] Last Admin: 05/01/17 23:00 Dose: 40 mg Pantoprazole Sodium (Protonix Iv) 40 mg IVPUSH DAILY@1130 [facility] Pantoprazole Sodium (Protonix) 40 mg PO ACBREAKFAST [facility] Last Admin: 05/06/17 07:44 Dose: 40 mg Povidone Iodine (Betadine 10% Soln) Confirm Administered Dose 1 ml .ROUTE .[facility] ONE Stop: 05/02/17 07:49 Propofol (Diprivan 20 Ml) Confirm Administered Dose 200 mg .ROUTE .[facility] ONE Stop: 05/02/17 07:44 Scopolamine (Transderm-Scop) 1.5 mg TOP Q72H [facility] Stop: 05/05/17 10:00 Last Admin: 05/02/17 10:49 Dose: 1.5 mg Senna (Senna) 8.6 mg PO BID [facility] Last Admin: 05/06/17 08:40 Dose: 8.6 mg Sodium Chloride (Saline Flush) 10 ml FLUSH ONETIME ONE Stop: 05/04/17 11:16 Last Admin: 05/04/17 11:59 Dose: 10 ml Tramadol HCl (Ultram) 100 mg PO Q6H PRN PRN Reason: Pain Last Admin: 05/06/17 14:31 Dose: 100 mg Zolpidem Tartrate (Ambien) 5 mg PO BEDTIME PRN PRN Reason: Sleep - Exam Quality Assessment: Urine Catheter, DVT Prophylaxis General: No Acute Distress, Lethargic Lungs: Clear to Auscultation, Normal Respiratory Effort Cardiovascular: Regular Rate, Regular Rhythm, No Murmurs GI/Abdominal Exam: Soft, Non-Tender, No Organomegaly, No Distention - Problem List Review Problem List Initiated/Reviewed/Updated: Yes - My Orders Last 24 Hours: My Active Orders 05/06/17 11:43 Transfer Patient (Change bed) [ADT] Routine 05/06/17 23:49 Urinary Catheter Insertion [Insert Urinary Catheter] [OM.PC] Q24H 05/06/17 23:50 Urinary Catheter Assessment [RC] Q12H 05/07/17 08:24 LORazepam [Ativan ORAL Concentrate 1MG/0.5 ML U/D] 0.5 mg PO Q2H PRN Morphine [Morphine 10 MG/0.5 ML Oral Syringe] 5 mg SL Q1H PRN - Plan Plan:: Assessment and Plan - Right Intertrochanteric fracture of right hip - surgical intervention completed 5 days ago with IM nailing. Currently on comfort cares only -Pain control Acute blood loss anemia-secondary to recent hip fracture and surgery, hemoglobin improved and is stable following transfusion of one unit of red blood cells Acute CVA with expressive aphasia and left arm weakness- she has been changed to comfort cares only -Pured diet, nectar thickened liquids Congestive heart failure-stable following diuresis Coronary artery disease - Pacemaker, PVD, HTN, CHF, CABG 2007 -continue medical management -telemetry COPD -Scheduled and as needed nebulizers for comfort Palliative care-patient's advance directive reviewed and clearly states she does not want intubation, mechanical ventilation, CPR, or a feeding tube. She is currently comfort cares only. Maintenance issues - - DVT prophylaxis - mechanical, SCD - GI prophylaxis - PPI - Nutrition - . Diet, nectar thickened liquids - Serna catheter - catheter was placed again last night because of urinary retention and discomfort Disposition - anticipate discharge to the senior care tomorrow
--- NOTE | 2017-05-07 10:48 | PCM.DCSUM1 ---
Discharge Summary - Hospital Course Brief History: Ms. Echavarria is an 81-year-old woman who is admitted through the emergency department with acute right hip fracture. - Discharge Data Discharge Date: 05/07/17 Discharge Disposition: DC/Tfer to SNF 03 Condition: Poor - Discharge Diagnosis/Problem(s) (1) Acute cerebrovascular accident SNOMED Code(s): 778961207 ICD Code: I63.9 - CEREBRAL INFARCTION, UNSPECIFIED Status: Acute Current Visit: Yes (2) Expressive aphasia SNOMED Code(s): 523460983 ICD Code: R47.01 - APHASIA Status: Acute Current Visit: Yes (3) Status post hip surgery SNOMED Code(s): 310812160 ICD Code: Z98.890 - OTHER SPECIFIED POSTPROCEDURAL STATES Status: Acute Current Visit: Yes Problem Details: Femur Intramedulary Nailing supracondyla (4) Intertrochanteric fracture, hip SNOMED Code(s): 767070185 ICD Code: S72.143A - DISPLACED INTERTROCHANTERIC FRACTURE OF UNSP FEMUR, INIT Status: Acute Current Visit: Yes (5) Peripheral vascular disease SNOMED Code(s): 567513781 ICD Code: I73.9 - PERIPHERAL VASCULAR DISEASE, UNSPECIFIED Status: Chronic Current Visit: No (6) Congestive heart failure (CHF) SNOMED Code(s): 42874942 ICD Code: I50.9 - HEART FAILURE, UNSPECIFIED Status: Chronic Current Visit: No (7) COPD (chronic obstructive pulmonary disease) SNOMED Code(s): 08771184 ICD Code: J44.9 - CHRONIC OBSTRUCTIVE PULMONARY DISEASE, UNSPECIFIED Status : Chronic Current Visit: No (8) Venous stasis SNOMED Code(s): 15888057 ICD Code: I87.8 - OTHER SPECIFIED DISORDERS OF VEINS Status: Chronic Current Visit: No - Patient Summary/Data Consults: Consultations 05/01/17 22:11 Consult to Physician [CONS] Routine Consulting Provider: Quang Vizcarra Call Completed to Consulting Physician: Yes: rt hip fx; surgery in am Reason for Consult: surgery Person Notified: Dr. Marti Vizcarra Date Notified: 05/01/17 05/02/17 14:33 OT Evaluation and Treatment [CONS] Routine Please Evaluate and Treat. OT Reason for Consult: Strengthening This query below is only for informational purposes and is not editable. Admission Diagnosis/Problem: Hip fracture requiring operative repair PT Evaluation and Treatment [CONS] Routine Please Evaluate and Treat. PT Reason for Consult: Strengthening This query below is only for informational purposes and is not editable. Admission Diagnosis/Problem: Hip fracture requiring operative repair Respiratory Care Assess and Treatment [CONS] Routine Comment: Physician Instructions: Post-Op Pneumonia Prevention 05/03/17 09:16 Consult to Speech Language Pathology [BOW TACKER Evaluation and Treatment] [CONS] Routine Please Evaluate and Treat BOW TACKER Reason for Consult: Speech Language Cognitive This query below is only for informational purposes and is not editable. Admission Diagnosis/Problem: Hip fracture requiring operative repair Hospital Course: Ms. Echavarria is an 81-year-old woman who tripped and fell at home experiencing an injury to her right hip with significant pain. She was brought into the emergency department for further evaluation, x-ray documented intertrochanteric fracture of the right hip. She has a known history of multiple underlying medical problems including COPD, congestive heart failure, coronary artery disease, chronic kidney disease, and peripheral arterial disease. On admission she was given IV fluids for hydration and pain medication as needed. Following day she was seen and evaluated by Dr. Bryson Vizcarra and underwent surgical repair of her right hip fracture. Postoperative course was complicated by development of expressive aphasia and new left upper extremity weakness. She was felt to have an acute CVA, CT scan of the head was obtained without contrast and showed no acute findings. She did develop significant difficulty with swallowing following the CVA and was seen and evaluated by the speech pathologist. Over the next several days she had no significant improvement in her status. She did develop transient fluid overload that responded well to IV diuretic therapy. Situation was discussed with the patient's family and they felt strongly that she would not want further aggressive evaluation or intervention. We discussed the possibility of further diagnostic studies including CT scan with contrast, carotid Doppler studies, and echocardiogram. Her family felt that she would not want these further interventions and that she would want to be kept comfortable without further interventions. All diagnostic studies were discontinued as well as all medications not related to comfort. She had expressly written in her advanced directive that she did not want a feeding tube, family understands that she is at very high risk for aspiration. She was changed to comfort cares only status, morphine and lorazepam were used as needed for comfort. She will be discharged to [facility] on comfort cares only with no further hospitalizations. Activity will be as tolerated and she will be on a pured diet with nectar thickened liquids. - Patient Instructions Diet: Pureed Diet, Other: [place] thickened liquids Activity: As Tolerated Other/Special Instructions: Comfort cares only, no further hospitalization - Discharge Plan Prescriptions/Med Rec: LORazepam [Ativan ORAL Concentrate 1MG/0.5 ML U/D] 0.5 mg PO Q2H PRN #15 ml PRN Reason: Anxiety Morphine [Morphine 10 MG/0.5 ML Oral Syringe] 5 mg SL Q1H PRN #30 syringe PRN Reason: Pain Home Medications: Home Meds Polyethylene Glycol 3350 [MiraLAX] 17 gm PO BID PRN 05/01/17 [History] Acetaminophen [Acetaminophen Extra Strength] 500 mg PO Q4H PRN #0 05/07/17 [Rx] LORazepam [Ativan ORAL Concentrate 1MG/0.5 ML U/D] 0.5 mg PO Q2H PRN #15 ml 08/17 [Rx] Morphine [Morphine 10 MG/0.5 ML Oral Syringe] 5 mg SL Q1H PRN #30 syringe [Rx] Forms: ED Department Discharge Referrals: Vance Vargas MD [Primary Care Provider] - - Patient Data Vitals - Most Recent: Last Vital Signs Temp 98.8 F 05/07/17 07:52 Pulse 40 L 05/07/17 07:52 Resp 20 05/07/17 07:52 BP 118/58 L 05/06/17 19:48 Pulse Ox 80 L 05/07/17 07:52 Weight - Most Recent: 95 lb 7.362 oz I&O - Last 24 hours: Intake & Output 05/06/17 05/07/17 05/07/17 22:59 06:59 14:59 Intake Total 0 Output Total 550 Balance -550 Med Orders - Current: Current Medications Acetaminophen (Tylenol) 650 mg PO Q4H PRN PRN Reason: Pain (Mild 1-3)/fever Al Hydroxide/Mg Hydroxide (Mag-Al Plus) 30 ml PO Q4H PRN PRN Reason: Constipation Albuterol (Proventil Neb Soln) 2.5 mg NEB Q4H PRN PRN Reason: Shortness Of Breath/wheezing Last Admin: 05/03/17 13:18 Dose: 2.5 mg Albuterol/Ipratropium (Duoneb 3.0-0.5 Mg/3 Ml) 3 ml NEB QIDRT [facility] Last Admin: 05/07/17 07:15 Dose: 3 ml Bisacodyl (Dulcolax) 10 mg PO DAILY [facility] Last Admin: 05/07/17 09:25 Dose: 10 mg Ketorolac Tromethamine (Toradol) 15 mg IVPUSH Q8H PRN PRN Reason: Pain Stop: 05/07/17 14:33 Last Admin: 05/04/17 05:29 Dose: 15 mg Lorazepam (Ativan Oral Concentrate 1mg/0.5 Ml U/D) 0.5 mg PO Q2H PRN PRN Reason: Anxiety Last Admin: 05/07/17 09:22 Dose: 0.5 mg Morphine Sulfate (Morphine 10 Mg/0.5 Ml Oral Syringe) 5 mg SL Q1H PRN PRN Reason: Pain Last Admin: 05/07/17 10:02 Dose: 5 mg Sodium Chloride (Saline Flush) 10 ml FLUSH DAILY [facility] Last Admin: 05/07/17 09:23 Dose: 10 ml Discontinued Medications Aspirin (Ecotrin) 325 mg PO DAILY [facility] Last Admin: 05/06/17 08:40 Dose: 325 mg Bupivacaine HCl/Epinephrine Bitart (Marcaine 0.5%/Epinephrine 1:200,000) Confirm Administered Dose 50 ml .ROUTE .STK-MED ONE Stop: 05/02/17 07:49 Last Admin: 05/02/17 12:08 Dose: 20 ml Ropivacaine 49.25 ml/Ketorolac Tromethamine 30 mg/Epinephrine HCl 0.5 mg/ Clonidine HCl 80 mcg/ Sodium Chloride 48.45 ml 0 ml INJECT ONETIME ONE Stop: 05/02/17 11:01 Last Admin: 05/02/17 12:20 Dose: 100 ml Dexamethasone (Dexamethasone) Confirm Administered Dose 4 mg .ROUTE .STK-MED ONE Stop: 05/02/17 12:42 Diazepam (Valium.) 5 mg PO Q6H PRN PRN Reason: Spasms Diphenhydramine HCl (Benadryl) 25 mg IVPUSH Q4H PRN PRN Reason: Itching Docusate Sodium (Colace) 100 mg PO BID PRN PRN Reason: Constipation Last Admin: 05/01/17 23:00 Dose: 100 mg Fentanyl (Sublimaze) 25 mcg IVPUSH ONETIME ONE Stop: 05/01/17 19:50 Last Admin: 05/01/17 19:56 Dose: 25 mcg Fentanyl (Sublimaze) Confirm Administered Dose 100 mcg .ROUTE .STK-MED ONE Stop: 05/02/17 07:44 Flumazenil (Romazicon) Confirm Administered Dose 0.5 mg .ROUTE .STK-MED ONE Stop: 05/02/17 12:58 Furosemide (Lasix) 40 mg IVPUSH NOW ONE Stop: 05/04/17 14:01 Last Admin: 05/04/17 14:05 Dose: 40 mg Furosemide (Lasix) 40 mg IVPUSH ONETIME ONE Stop: 05/05/17 09:46 Last Admin: 05/05/17 09:49 Dose: 40 mg Glycopyrrolate () Confirm Administered Dose 1 mg .ROUTE .STK-MED ONE Stop: 05/02/17 12:41 Hydromorphone HCl (Dilaudid) 0.5 mg IVPUSH ONETIME ONE Stop: 05/01/17 20:33 Last Admin: 05/01/17 20:43 Dose: 0.5 mg Hydromorphone HCl (Dilaudid) 0.5 - 1 mg IVPUSH Q2H PRN PRN Reason: Pain Last Admin: 05/06/17 16:55 Dose: 0.5 mg Sodium Chloride (Normal Saline) 1,000 mls @ 100 mls/hr IV ASDIRECTED [facility] Last Admin: 05/02/17 23:55 Dose: 100 mls/hr Cefazolin Sodium/Dextrose 2 gm (/ Premix) 50 mls @ 100 mls/hr IV ONCALL ONE Stop: 05/02/17 11:59 Last Admin: 05/02/17 10:50 Dose: 100 mls/hr Tranexamic Acid 450 mg/ Sodium (Chloride) 54.5 mls @ 218 mls/hr IV Q3H [facility] Stop: 05/02/17 14:44 Last Admin: 05/02/17 12:20 Dose: 218 mls/hr Tranexamic Acid 450 mg/ Sodium (Chloride) 54.5 mls @ 218 mls/hr IV Q3H [facility] Stop: 05/02/17 14:14 Last Admin: 05/02/17 13:22 Dose: 218 mls/hr Acetaminophen 1,000 mg/ Premix 100 mls @ 400 mls/hr IV NOW ONE Stop: 05/02/17 16:14 Last Admin: 05/02/17 15:26 Dose: 400 mls/hr Cefazolin Sodium/Dextrose 1 gm (/ Premix) 50 mls @ 100 mls/hr IV Q8H [facility] Stop: 05/03/17 12:29 Last Admin: 05/03/17 11:44 Dose: 100 mls/hr Potassium Chloride/Dextrose/Sod Cl (D5 1/2 Ns W/ 20 Meq/L Kcl) 1,000 mls @ 75 mls/hr IV ASDIRECTED [facility] Last Infusion: 05/04/17 03:52 Dose: 0 mls/hr Sodium Chloride (Normal Saline) 500 mls @ 500 mls/hr IV ASDIRECTED [facility] Stop: 05/03/17 17:46 Last Admin: 05/03/17 16:58 Dose: 500 mls/hr Sodium Chloride (Normal Saline) 1,000 mls @ 250 mls/hr IV ASDIRECTED [facility] Stop: 05/04/17 08:00 Last Admin: 05/04/17 03:54 Dose: 250 mls/hr Sodium Chloride (Normal Saline) 1,000 mls @ 50 mls/hr IV ASDIRECTED [facility] Potassium Chloride 20 meq/Lidocaine HCl 2 ml/ Sodium Chloride 112 mls @ 56 mls/ hr IV Q2H [facility] Stop: 05/05/17 12:59 Last Admin: 05/05/17 10:31 Dose: 56 mls/hr Sodium Chloride (Normal Saline) 1,000 mls @ 25 mls/hr IV ASDIRECTED [facility] Last Infusion: 05/06/17 10:05 Dose: 0 mls/hr Ampicillin Sodium/Sulbactam (Sodium 1.5 gm/ Sodium Chloride) 50 mls @ 100 mls/ hr IV Q6H [facility] Last Admin: 05/06/17 07:39 Dose: Not Given Ampicillin Sodium/Sulbactam (Sodium 1.5 gm/ Sodium Chloride) 50 mls @ 100 mls/ hr IV Q6H [facility] Last Admin: 05/06/17 13:42 Dose: 100 mls/hr Iopamidol (Isovue-300 (61%)) 100 ml IV . DIRECTED PRN PRN Reason: RADIOLOGY EXAM Stop: 05/05/17 11:16 Ketamine HCl (Ketalar) 23 mg IV ASDIRECTED [facility] Stop: 05/02/17 14:00 Lorazepam (Ativan) 0.5 - 1 mg IV Q6H PRN PRN Reason: Agitation Last Admin: 05/07/17 04:31 Dose: 1 mg Magnesium Hydroxide (Milk Of Magnesia) 30 ml PO BID [facility] Last Admin: 05/06/17 08:40 Dose: 30 ml Melatonin (Melatonin) 6 mg PO BEDTIME [facility] Last Admin: 05/05/17 20:14 Dose: 6 mg Midazolam HCl (Versed 1 Mg/Ml) Confirm Administered Dose 2 mg .ROUTE .STK-MED ONE Stop: 05/02/17 07:44 Morphine Sulfate (Morphine) 2 mg IVPUSH Q2H PRN PRN Reason: Pain Last Admin: 05/07/17 07:50 Dose: 2 mg Naloxone HCl (Narcan) Confirm Administered Dose 0.4 mg .ROUTE .STK-MED ONE Stop: 05/02/17 12:58 Neostigmine Methylsulfate (Neostigmine) Confirm Administered Dose 5 mg .ROUTE .STK-MED ONE Stop: 05/02/17 12:41 Scopolamine Patch (Check) 1 each TOP DAILY [facility] Last Admin: 05/06/17 09:12 Dose: Not Given Ondansetron HCl (Zofran) Confirm Administered Dose 4 mg .ROUTE .STK-MED ONE Stop: 05/02/17 12:42 Oxycodone HCl (Oxycodone) 5 mg PO Q4H PRN PRN Reason: Pain (moderate 4-6) Last Admin: 05/02/17 09:18 Dose: 5 mg Oxycodone HCl (Oxycodone) 5 - 10 mg PO Q4H PRN PRN Reason: Pain (moderate 4-6) Last Admin: 05/06/17 12:11 Dose: 5 mg Oxycodone/Acetaminophen (Percocet 325-5 Mg) 2 tab PO Q4H PRN PRN Reason: Pain Pantoprazole Sodium (Protonix Iv) 40 mg IVPUSH DAILY [facility] Last Admin: 05/01/17 23:00 Dose: 40 mg Pantoprazole Sodium (Protonix Iv) 40 mg IVPUSH DAILY@1130 [facility] Pantoprazole Sodium (Protonix) 40 mg PO ACBREAKFAST [facility] Last Admin: 05/06/17 07:44 Dose: 40 mg Povidone Iodine (Betadine 10% Soln) Confirm Administered Dose 1 ml .ROUTE .STK- MED ONE Stop: 05/02/17 07:49 Propofol (Diprivan 20 Ml) Confirm Administered Dose 200 mg .ROUTE .STK-MED ONE Stop: 05/02/17 07:44 Scopolamine (Transderm-Scop) 1.5 mg TOP Q72H [facility] Stop: 05/05/17 10:00 Last Admin: 05/02/17 10:49 Dose: 1.5 mg Senna (Senna) 8.6 mg PO BID [facility] Last Admin: 05/06/17 08:40 Dose: 8.6 mg Sodium Chloride (Saline Flush) 10 ml FLUSH ONETIME ONE Stop: 05/04/17 11:16 Last Admin: 05/04/17 11:59 Dose: 10 ml Tramadol HCl (Ultram) 100 mg PO Q6H PRN PRN Reason: Pain Last Admin: 05/06/17 14:31 Dose: 100 mg Zolpidem Tartrate (Ambien) 5 mg PO BEDTIME PRN PRN Reason: Sleep *Q Meaningful Use (DIS) - VTE *Q VTE Criteria *Q: - Stroke *Q Stroke Criteria *Q: - AMI *Q AMI Criteria *Q:
--- NOTE | 2017-05-07 10:51 | CR ---
Moderate cardiomegaly. Mildly improved aeration within the left midlung zone and left lung base. Mild interstitial thickening remaining to indicate interstitial edema.
== END 2017-05-07 14:00 | DRG 480 ==
LOC: JP.ED 19:09 → JP.MS 21:06 → JP.ICU 05-02 14:00 → JP.MS 05-06 13:15
PROVIDERS: ADMIT Internal Medicine; ATTEND Orthopaedic Surgery
PROC: 0QS606Z Reposition Right Upper Femur with Intramedullary Internal Fixation Device, Open Approach (ICD-10-PCS; principal; 2017-05-02)
PROC: 0QS6XZZ Reposition Right Upper Femur, External Approach (ICD-10-PCS; 2017-05-02)
PROC: 30233N1 Transfusion of Nonautologous Red Blood Cells into Peripheral Vein, Percutaneous Approach (ICD-10-PCS; 2017-05-04)
DX: S72.141A Displaced intertrochanteric fracture of right femur, initial encounter for closed fracture (principal); I63.9 Cerebral infarction, unspecified; D62 Acute posthemorrhagic anemia; R47.01 Aphasia; W01.0XXA Fall on same level from slipping, tripping and stumbling without subsequent striking against object, initial encounter; M25.551 Pain in right hip; Y92.009 Unspecified place in unspecified non-institutional (private) residence as the place of occurrence of the external cause; J44.9 Chronic obstructive pulmonary disease, unspecified; I50.9 Heart failure, unspecified; Z87.891 Personal history of nicotine dependence; Z66 Do not resuscitate; Z51.5 Encounter for palliative care; G83.24 Monoplegia of upper limb affecting left nondominant side; I25.10 Atherosclerotic heart disease of native coronary artery without angina pectoris; I73.9 Peripheral vascular disease, unspecified; I87.8 Other specified disorders of veins; Z86.73 Personal history of transient ischemic attack (TIA), and cerebral infarction without residual deficits; M19.90 Unspecified osteoarthritis, unspecified site; M54.9 Dorsalgia, unspecified; G89.29 Other chronic pain; I25.2 Old myocardial infarction; K59.09 Other constipation; H54.7 Unspecified visual loss; Z95.0 Presence of cardiac pacemaker; Z95.1 Presence of aortocoronary bypass graft; Z88.8 Allergy status to other drugs, medicaments and biological substances; H54.62 Unqualified visual loss, left eye, normal vision right eye
CPT/HCPCS: 36415; 51702; 73502 ×2; 80048; 85025; 96374; 96375; 99284; 99285; J1170; J3010; 36430; 70450; 71045; 71045-26; 76001; 80053; 81001; 83735; 85018; 86850; 86900; 86901; 86920; 86922; 92507-GN; 92522-GN; 94640; 97110-GO; 97110-GP; 97112-GP; 97163-GP; 97166-GO; 97530-GP; A9270-GY; C1713; C9113; J0131; J0171; J0287; J0690; J0735; J1100; J1885; J1940; J2060; J2250; J2270; J2310; J2405; J2704; J2795; J3480; J3490; J7030; J7050; J7620; P9016